=== PATIENT | male | born 1965 | race Caucasian/White ===

== ENCOUNTER 2019-08-20 10:01 | Emergency (ER) | payer MEDICARE, MEDICAID, SELFPAY ==
[2019-08-20 10:18] VITALS: BP 109/79; PULSE 111; RESP 20; TEMP 36.6; BMI 21.7
--- NOTE | 2019-08-20 10:35 | W.ED.ABDPA2 ---
HPI - Abdominal Pain General: Chief Complaint: Abdominal Pain Stated Complaint: Fluid, fall Time Seen by Provider: 08/20/19 10:35 Source: patient Limitations: no limitations History of Present Illness: HPI narrative: here stating I am full of fluid ; reports chronic liver cirrhosis from previous etoh use and hep B; reports last paracentesis 2 wks ago at GI lab; follows up with Dr. Mullins; also complains of bilateral hip pain; states he fell about 4-5 days ago after tripping and has had pain since Location: Diffuse Exacerbating factors: nothing Relieving factors: other (paracentesis ) Associated Symptoms: Denies chills, diarrhea, dysuria, fever(s), nausea and vomiting Review of Systems Const: Denies: fever, chills or body aches Card: Denies: chest pain, palpitations or irregular heart rhythm Resp: Denies: shortness of breath or productive cough GI: Reports: abdominal pain; Denies: nausea, vomiting or diarrhea : Denies: difficulty urinating, painful urination or urinary frequency Musc: Reports: joint pain (bilateral hips); Denies: neck pain or back pain Skin/Breast: Denies: rash Neuro: Denies: headache, numbness in extremities, weakness in extremities, changes in sensation, lack of coordination, frequent falls or slurred speech PFSH ED PFSH: Statuses (acute, chronic, etc) shown below reflect problem list status as previously entered and may not be historically accurate Social History Smoking and tobacco status: current every day smoker Physical Exam Const: COMMON NORMALS: no apparent distress, oriented x3, no limitations and alert GENERAL APPEARANCE: cooperative ORIENTATION/CONSCIOUSNESS: Yes oriented to person, Yes oriented to place and Yes oriented to time Chest: COMMONS NORMALS: inspection of chest normal Resp: COMMON NORMALS: normal respiratory effort and clear to auscultation bilaterally AUSCULTATION: clear to auscultation bilaterally Cardio: COMMON NORMALS: regular rate and regular rhythm RATE: regular rate RHYTHM: regular rhythm GI: INSPECTION: Yes abdominal distension, Yes caput medusae present, Yes fluid wave present and Yes other (umbilical hernia) PALPATION: Yes other (distention ) PERCUSSION: fluid wave Neuro: COMMON NORMALS: oriented x3 SENSORIUM/ORIENTATION: Yes alert, Yes oriented to person, Yes oriented to place and Yes oriented to time Skin: COMMON NORMALS: no rashes or lesions noted GENERAL SKIN EXAM: no rashes or lesions noted Course ED course: Patient: Negrito Nair RMR#: [id number] : 1965Acct:[id number] Age/Sex: 54 / MADM Date: 08/20/19 Loc: ER Attending Dr: Ordering Physician: Annika Mae Date of Service: 08/20/19 Procedure(s): XR hip BI 3-4V wo/w pel [id number] Accession Number(s): [id number] Report Number: [id number] WS: [id number] Bilateral hips, 2 views each, 08/20/2019 Clinical Data: fall; pain Comparison: None. Findings: Right hip: No fractures or dislocations are seen. The joint space is normal. The soft tissues are unremarkable. The pubic symphysis and adjacent visualized right pelvis are unremarkable. Left hip: No fractures or dislocations are seen. The joint space is normal. The soft tissues are unremarkable. The pubic symphysis and adjacent left pelvis are normal. XR/XR hip BI 3-4V wo/w pel [id number] Impression: Negative bilateral hips. Dictated By:Bhavya Nash MD Signed By:Bhavya Nash MDSigned Date/Time:08/20/19 1329 DD/ 132[address] [place] [address] Ultrasound Report Signed Patient: Negrito Nair RMR#: [id number] : 1965Acct:[id number] Age/Sex: 54 / MADM Date: 08/20/19 Loc: ER Attending Dr: Ordering Physician: Annika Mae Date of Service: 08/20/19 Procedure(s): US paracentesis abd w [id number] Accession Number(s): [id number] Report Number: [id number] WS: [id number] ULTRASOUND-GUIDED PARACENTESIS CLINICAL INFORMATION: ascities COMPARISON: None. Procedure Informed consent: The risks, benefits, and alternatives of the procedure were discussed with the patient. Verbal and written consent was obtained. Timeout: A timeout was performed to confirm the correct patient, procedure, and site. Preparation: A suitable skin site was identified. The patient was prepped and draped in usual sterile fashion. Lidocaine 1% was used for local anesthesia. Catheter: 4 Yoruba One-step Yueh catheter. Side: Right Lower quadrant. Fluid Volume: 5000 ml Color: Yellow DISPOSITION: Discarded safely. Complications: None. Patient disposition: No immediate combinations. Patient tolerated the procedure well. US/US paracentesis abd w [id number] IMPRESSION: Uncomplicated ultrasound-guided paracentesis. Removal of 5000 cc yellow fluid Dictated By:Contreras Rodriguez MD Signed By:Contreras Rodriguez MDSigned Date/Time:08/20/191432 DD/ 143 Vital Signs: Vital signs: Vital Signs Temperature 97.9 F 08/20/19 10:18 Pulse Rate 123 H 08/20/19 15:00 Respiratory Rate 20 H 08/20/19 10:18 Blood Pressure 116/86 08/20/19 15:00 Pulse Oximetry 99 08/20/19 15:00 MDM - Abdominal Pain MDM Narrative: Medical decision making narrative: pt given therapeutic paracentesis while in ER; 5L fluid drained; on patient's lab he was noted to have a sodium of 118, potassium of 2.9, and acute kidney injury; when it was recommended patient stay in the hospital he refuses and adamantly wants to go home; risks of a sodium that low including were discussed and patient still would like to go home; discussed with Dr. Fernandes and we will give patient a dose of potassium and magnesium prior to him signing AMA; he states he has a follow-up with Dr. Patricio next week; Dr. Fernandes agreed we did not need to do peritoneal fluid analysis on today's visit Medical Records: Attestation: I reviewed the patient's medical records. Lab Data: Attestation: I reviewed the patient's lab results. Labs: Lab Results 08/20/19 08/20/19 08/20/19 Range/Units 12:44 12:44 12:44 WBC 10.8 H (4.0-10.0) 10^3/ uL RBC 4.32 (4.1-5.3) 10^6/u L Hgb 11.4 L (11.7-16.6) g/dL Hct 33.9 L (42.0-52.0) % MCV 78.5 L (80-94) fL MCH 26.4 L (28.0-34.0) pg MCHC 33.6 (30.0-36.0) g/dL RDW 16.8 H (12.1-15.1) % Plt Count 188 (130-400) 10^3/c mm MPV 9.5 (7.4-10.4) fL Neut % (Auto) 86.5 % Lymph % (Auto) 3.9 % [place] % (Auto) 9.0 % Eos % (Auto) 0.1 % Baso % (Auto) 0.0 % Neut # (Auto) 9.4 H (1.8-7.7) 10^3/u L Lymph # (Auto) 0.4 L (0.8-4.8) 10^3/u L [place] # (Auto) 1.0 H (0.2-0.9) 10^3/u L Eos # (Auto) 0.0 (0.0-0.8) 10^3/u L Baso # (Auto) 0.0 (0.0-0.1) 10^3/u L Nucleated RBC % (a uto) 0 % Nucleated RBCs # 0.0 /100WBC PT 15.80 H (10.5-13.3) SECO NDS INR 1.22 H (0.8-1.2) APTT 34.8 (23.9-36.7) SECO NDS Sodium 118 L* (136-145) mmol/L Potassium 2.9 L (3.5-5.1) mmol/L Chloride 82 L (98-107) mmol/L Carbon Dioxide 23 (22-29) mmol/L Anion Gap 15.9 (5-19) BUN 28 H (6-20) mg/dL Creatinine 1.3 H (0.7-1.2) mg/dL GFR Calculation 57.7 L (90-130) mL/min Glucose 93 (74-109) mg/dL Lactate (0.5-2.2) mmol/L Calcium 9.3 (8.6-10.0) mg/Dl Total Bilirubin 1.4 H (0.15-1.2) mg/dL AST 36 (0-40) U/L ALT 21 (0-41) U/L Alkaline Phosphata se 179 H (40-130) IU/L Ammonia (16-60) umol/L NT-Pro-B Natriuret Pep (0-125) pg/mL Total Protein 6.2 L (6.6-8.7) g/dL Albumin 3.3 L (3.5-5.2) g/dL Globulin 2.9 (1.3-4.6) g/dL Lipase 29 (13-60) U/L 08/20/19 08/20/19 08/20/19 Range/Units 12:44 12:44 12:44 WBC (4.0-10.0) 10^3/ uL RBC (4.1-5.3) 10^6/u L Hgb (11.7-16.6) g/dL Hct (42.0-52.0) % MCV (80-94) fL MCH (28.0-34.0) pg MCHC (30.0-36.0) g/dL RDW (12.1-15.1) % Plt Count (130-400) 10^3/c mm MPV (7.4-10.4) fL Neut % (Auto) % Lymph % (Auto) % [place] % (Auto) % Eos % (Auto) % Baso % (Auto) % Neut # (Auto) (1.8-7.7) 10^3/u L Lymph # (Auto) (0.8-4.8) 10^3/u L [place] # (Auto) (0.2-0.9) 10^3/u L Eos # (Auto) (0.0-0.8) 10^3/u L Baso # (Auto) (0.0-0.1) 10^3/u L Nucleated RBC % (a uto) % Nucleated RBCs # /100WBC PT (10.5-13.3) SECO NDS INR (0.8-1.2) APTT (23.9-36.7) SECO NDS Sodium (136-145) mmol/L Potassium (3.5-5.1) mmol/L Chloride (98-107) mmol/L Carbon Dioxide (22-29) mmol/L Anion Gap (5-19) BUN (6-20) mg/dL Creatinine (0.7-1.2) mg/dL GFR Calculation (90-130) mL/min Glucose (74-109) mg/dL Lactate 1.7 (0.5-2.2) mmol/L Calcium (8.6-10.0) mg/Dl Total Bilirubin (0.15-1.2) mg/dL AST (0-40) U/L ALT (0-41) U/L Alkaline Phosphata se (40-130) IU/L Ammonia 31 (16-60) umol/L NT-Pro-B Natriuret Pep 200 H (0-125) pg/mL Total Protein (6.6-8.7) g/dL Albumin (3.5-5.2) g/dL Globulin (1.3-4.6) g/dL Lipase (13-60) U/L Discharge Plan Discharge Patient Disposition: Left Against Medical Advice Clinical Impression: Cirrhosis of liver, Ascites, Acute hyponatremia, Acute hypokalemia, Acute kidney injury Prescriptions: No Action betamethasone valerate 0.1 % Ointment 1 applic TOPICAL BID PRN (Reason: Rash) RF: 0 tizanidine 4 mg Tablet 4 mg PO Q6H PRN (Reason: Spasms) RF: 0 Zofran 4 mg Tablet 4 mg PO Q8H PRN (Reason: Nausea) RF: 0 spironolactone 100 mg Tablet See Rx Instructions .ROUTE .COMPLEX RF: 0 sumatriptan succinate 50 mg Tablet 50 mg PO PRN MDD 100 MG RF: 0 mirtazapine 30 mg Tablet 15 - 30 mg PO BEDTIME RF: 0 omeprazole 20 mg Capsule,Delayed Release(Dr/Ec) 20 mg PO DAILY PRN (Reason: Acid Reflux) RF: 0 hydrochlorothiazide 25 mg Tablet 25 mg PO DAILY RF: 0 Ventolin HFA 90 mcg/actuation Hfa Aerosol Inhaler 2 puff INHALATION Q6H PRN (Reason: Shortness Of Breath) RF: 0 propranolol 20 mg Tablet 20 mg PO BID RF: 0 morphine 15 mg Tablet 15 mg PO QID PRN (Reason: Breakthrough Pain) RF: 0 glipizide 5 mg Tablet 5 mg PO DAILY RF: 0 morphine 30 mg Capsule,Extend.Release Pellets 30 mg PO Q12H MDD 60 MG RF: 0 Xifaxan 550 mg Tablet 550 mg PO DAILY RF: 0 Interventions: ED Discharge Assessment Last Done: 08/20/19 15:24 Discharge Date/Time: 08/20/19 15:24 Coding Level of Care Code ED First Line Production Supervisor for Esdras Paz Exam Problem Focused
--- NOTE | 2019-08-20 11:21 | US_ITS ---
WS: [id number] ULTRASOUND-GUIDED PARACENTESIS CLINICAL INFORMATION: ascities COMPARISON: None. Procedure Informed consent: The risks, benefits, and alternatives of the procedure were discussed with the vijaya ent. Verbal and written consent was obtained. Timeout: A timeout was performed to confirm the correct patient, procedure, and site. Preparation: A suitable skin site was identified. The patient was prepped and draped in usual sterile fashion. Lidocaine 1% was used for local anesthesia. Catheter: 4 Lao One-step Yueh catheter. Side: Right Lower quadrant. Fluid Volume: 5000 ml Color: Yellow DISPOSITION: Discarded safely. Complications: None. Patient disposition: No immediate combinations. Patient tolerated the procedure well. US/US paracentesis abd w [id number] IMPRESSION: Uncomplicated ultrasound-guided paracentesis. Removal of 5000 cc yellow fluid
--- NOTE | 2019-08-20 11:35 | PC.NURSE ---
portable ultrasound at bedside
--- NOTE | 2019-08-20 12:01 | XR_ITS ---
WS: [id number] Bilateral hips, 2 views each, 08/20/2019 Clinical Data: fall; pain Comparison: None. Findings: Right hip: No fractures or dislocations are seen. The joint space is normal. The soft tissues are unremarkable. The pubic symphysis and adjacent visualized right pelvis are unremarkable. Left hip: No fractures or dislocations are seen. The joint space is normal. The soft tissues are unremarkable. The pubic symphysis and adjacent left pelvis are normal. XR/XR hip BI 3-4V wo/w pel [id number] Impression: Negative bilateral hips.
--- NOTE | 2019-08-20 12:29 | PC.NURSE ---
ultrasound guided paracentesis performed at bedside
[2019-08-20 12:30] VITALS: BP 110/81
[2019-08-20 12:46] VITALS: BP 114/84; PULSE 118; O2SAT 100
[2019-08-20 13:17] LABS: Eosinophils % 0.1 %; Hematocrit 33.9 % (42.0-52.0); Hemoglobin 11.4 g/dL (11.7-16.6); Lymphocytes # 0.4 10^3/uL (0.8-4.8); Lymphocytes % 3.9 %; Mean Corpuscular HGB Conc 33.6 g/dL (30.0-36.0); Mean Corpuscular Hemoglobin 26.4 pg (28.0-34.0); Mean Corpuscular Volume 78.5 fL (80-94); Mean Platelet Volume 9.5 fL (7.4-10.4); Neutrophils # 9.4 10^3/uL (1.8-7.7); Neutrophils % 86.5 %; Nucleated Red Blood Cells % 0 %; Platelet Count 188 10^3/cmm (130-400); Red Blood Count 4.32 10^6/uL (4.1-5.3); Red Cell Distribution Width 16.8 % (12.1-15.1); White Blood Count 10.8 10^3/uL (4.0-10.0)
[2019-08-20 13:26] LABS: INR 1.22 (0.8-1.2)
[2019-08-20 13:27] LABS: Partial Thromboplastin Time 34.8 SECONDS (23.9-36.7)
[2019-08-20 13:37] LABS: Ammonia 31 umol/L (16-60); Lactate (Lactic Acid level) 1.7 mmol/L (0.5-2.2)
[2019-08-20 13:38] LABS: Alanine Aminotransferase 21 U/L (0-41); Albumin Level 3.3 g/dL (3.5-5.2); Alkaline Phosphatase 179 IU/L (40-130); Anion Gap 15.9 (5-19); Aspartate Amino Transferase 36 U/L (0-40); Blood Urea Nitrogen 28 mg/dL (6-20); Calcium 9.3 mg/Dl (8.6-10.0); Carbon Dioxide 23 mmol/L (22-29); Chloride 82 mmol/L (98-107); Globulin 2.9 g/dL (1.3-4.6); Glomerular Filtration Rate 57.7 mL/min (90-130); Glucose 93 mg/dL (74-109); Lipase 29 U/L (13-60); Total Bilirubin 1.4 mg/dL (0.15-1.2); Total Protein 6.2 g/dL (6.6-8.7)
[2019-08-20 13:42] LABS: NT Pro B Type Natriuretic Pept 200 pg/mL (0-125)
[2019-08-20 13:43] VITALS: BP 122/89; PULSE 110; O2SAT 100
--- NOTE | 2019-08-20 13:45 | PC.NURSE ---
pt reports his abdominal pain is resolved now
[2019-08-20 14:42] VITALS: BP 115/81; PULSE 112; O2SAT 99
[2019-08-20 14:46] LABS: Potassium 2.9 mmol/L (3.5-5.1); Sodium 118 mmol/L (136-145)
[2019-08-20 15:00] VITALS: BP 116/86; PULSE 123; O2SAT 99
[2019-08-20] MEDS: magnesium oxide 400 mg tablet 800 MG PO (15:19)
[2019-08-20] MEDS: potassium chloride oral liq 20 mEq/15 mL UDC 60 MEQ PO (15:19)
--- NOTE | 2019-08-20 15:22 | PC.NURSE ---
pt left AMA. Pt states he is more comfortable at home and not interested in any more iv's. pt states he will follow up with his physician. pt left via wheelchair
== END 2019-08-20 15:24 | disposition left against medical advice (07) ==
PROVIDERS: Emergency Provider Physician Assistant
DX: K74.60 Unspecified cirrhosis of liver (principal); R18.8 Other ascites; E87.1 Hypo-osmolality and hyponatremia; E87.6 Hypokalemia; N17.9 Acute kidney failure, unspecified; Z53.21 Procedure and treatment not carried out due to patient leaving prior to being seen by health care provider; F17.210 Nicotine dependence, cigarettes, uncomplicated
CPT/HCPCS: 36415; 49083; 73522; 80053; 82140; 83605; 83690; 83880; 85025; 85610; 85730; 87040; 99281

== ENCOUNTER 2019-08-31 10:41 | Inpatient (IN) | payer MEDICARE, MEDICAID, SELFPAY ==
[2019-08-31] VITALS (23 sets, daily range): BP systolic 102–145; BP diastolic 58–102; PULSE 105–129; RESP 7–20; TEMP 36.4; O2SAT 90–99; BMI 21.7
--- NOTE | 2019-08-31 11:07 | W.ED.GENADLT ---
HPI - General Adult General: Chief complaint: General Medical Stated complaint: Sore throat Time Seen by Provider: 08/31/19 10:47 Source: patient Mode of arrival: ambulatory Limitations: no limitations History of Present Illness: HPI narrative: Patient comes in today for complaints of sore throat and decreased oral intake. Patient has a history of end-stage cirrhosis of the liver. Patient also uses routine inhalers. Patient appears chronically ill. Patient appears and mild pain. Review of Systems General: Reports: 10 or more systems reviewed and unremarkable except in HPI and below ENMT: Reports: throat pain and painful swallowing PFSH ED PFSH: Statuses (acute, chronic, etc) shown below reflect problem list status as previously entered and may not be historically accurate Medical History (Updated 08/31/19 @ 17:30 by EMANUEL Pulliam) Chronic low back pain (Acute) Current smoker (Acute) DM type 2 (diabetes mellitus, type 2) (Acute) Hepatitis B (Acute) Hepatitis C (Acute) History of alcoholism (Acute) History of drug abuse (Acute) Surgical History Hx of cholecystectomy (Acute) Family History Mother Cancer colon Social History Smoking and tobacco status: current every day smoker Alcohol intake: former Substance/Drug Use: former Marital status: Current occupational status: unemployed Physical Exam Const: COMMON NORMALS: no apparent distress and oriented x3 GENERAL APPEARANCE: cooperative HENMT: COMMON NORMALS: normocephalic, external ears normal, EAC's normal, TM's normal bilaterally and external nose normal HEAD & SCALP: normal to inspection and normocephalic FACE & SINUS: normal facial exam NOSE: external nose normal GENERAL EAR: hearing not grossly impaired EXTERNAL EAR: Yes external ears normal EXTERNAL AUDITORY CANAL: EAC's normal TYMPANIC MEMBRANE: TM's normal bilaterally THROAT: posterior oropharynx abnormal edema and exudates (upper palate, posterior pharynx) Eye: COMMON NORMALS: PERRL and EOMs intact bilaterally PUPIL: Yes PERRL Neck/C-Spine: COMMON NORMALS: full ROM and no lymphadenopathy Lymph: LYMPHATIC: no lymphedema noted Chest: COMMONS NORMALS: inspection of chest normal and palpation of chest normal Resp: COMMON NORMALS: normal respiratory effort and clear to auscultation bilaterally AUSCULTATION: clear to auscultation bilaterally Cardio: COMMON NORMALS: regular rate and regular rhythm RATE: regular rate RHYTHM: regular rhythm GI: COMMON NORMALS: normal to inspection, nondistended, normoactive bowel sounds and non-tender : COMMON NORMALS: Yes no CVA tenderness BLADDER/KIDNEY EXAM: Yes no CVA tenderness Back/Pelvis: COMMON NORMALS: no CVA tenderness and thoracic and lumbar spine normal to inspection Extremity: COMMON NORMALS: normal to inspection GENERAL: No edema Neuro: COMMON NORMALS: oriented x3, moves all extremities and no focal motor deficits Psych: COMMON NORMALS: mental status grossly normal and cooperative Skin: COMMON NORMALS: no rashes or lesions noted GENERAL SKIN EXAM: no rashes or lesions noted Course ED course: 1255, reviewed case with Dr. Riggins, agreed for concern of Dehydration and hyponatremia and patient need for admission. wjw 1430, discussed with Dr. Cardenas, he agreed to admission, he requested Zosyn started and order for US of abd for ascites. orders placed. wjw 1500, Dr. Riggins had spoken with Dr. Rodrigues whom has agreed to admission of patient to ICU Vital Signs: Vital signs: Vital Signs Temperature 97.6 F 08/31/19 10:41 Pulse Rate 114 H 08/31/19 16:31 Respiratory Rate 18 08/31/19 16:31 Blood Pressure 120/102 08/31/19 16:31 Pulse Oximetry 95 08/31/19 16:31 MDM - General Adult MDM Narrative: Medical decision making narrative: Patient comes in today with complaints of sore throat and declining condition. Patient has a history of cirrhosis of the liver. On exam patient's abdomen is nontender to palpation and soft. Respirations are even lungs are clear to auscultation. Posterior pharynx is red with exudate throughout oromucosa. Skin turgor is poor with tenting. Differential diagnosis includes dehydration, sepsis, oral stomatitis, infection in the peritoneal bowel. Reviewed exam with Dr. Riggins who recommended treatment for hyponatremia and dehydration. After discussion with hospitalist it was recommended for further evaluation with ultrasound and paracentesis for further evaluation of fluid to rule out infection in the peritoneum. Patient was ordered blood cultures and given 1 dose of Zosyn. Patient needs admission for further treatment of dehydration and hyponatremia along with further evaluation and care for possible sepsis and infection of the peritoneum. Lab Data: Labs: Lab Results 08/31/19 08/31/19 08/31/19 Range/Units 11:18 11:45 11:45 WBC 20.7 H (4.0-10.0) 10^3/ uL RBC 6.05 H (4.1-5.3) 10^6/u L Hgb 15.4 (11.7-16.6) g/dL Hct 45.3 (42.0-52.0) % MCV 74.9 L (80-94) fL MCH 25.5 L (28.0-34.0) pg MCHC 34.0 (30.0-36.0) g/dL RDW 17.1 H (12.1-15.1) % Plt Count 317 (130-400) 10^3/c mm MPV 8.6 (7.4-10.4) fL Neut % (Auto) 94.7 % Lymph % (Auto) 1.6 % [place] % (Auto) 3.1 % Eos % (Auto) 0.0 % Baso % (Auto) 0.1 % Neut # (Auto) 19.5 H (1.8-7.7) 10^3/u L Lymph # (Auto) 0.3 L (0.8-4.8) 10^3/u L [place] # (Auto) 0.7 (0.2-0.9) 10^3/u L Eos # (Auto) 0.0 (0.0-0.8) 10^3/u L Baso # (Auto) 0.0 (0.0-0.1) 10^3/u L Nucleated RBC % (a uto) 0 % Nucleated RBCs # 0.0 /100WBC Differential Comme nt Sodium 113 L* (136-145) mmol/L Potassium 5.4 H (3.5-5.1) mmol/L Chloride 74 L (98-107) mmol/L Carbon Dioxide 22 (22-29) mmol/L Anion Gap 22.4 H (5-19) BUN 81 H D (6-20) mg/dL Creatinine 2.4 H (0.7-1.2) mg/dL GFR Calculation 28.5 L (90-130) mL/min Glucose 133 H (74-109) mg/dL Lactic Acid (0.5-2.2) mmol/L Calcium 11.0 H (8.6-10.0) mg/Dl Ammonia (16-60) umol/L Fluid Color (PALE YELLOW) Fluid Appearance (CLEAR) Fluid Specific Gra v Fluid pH Fluid WBC u/L Fluid RBC (0-0) 10^3/uL Fluid Tot Cell Cou nt Fld Polynuclear WB Cs # 10^3/uL Fld Polynuclear WB Cs % % Fl Mononucl WBCs # (Auto) 10^3/uL Fl Mononuclear % A uto % Fluid Glucose mg/dL Fluid Total Protei n g/dL Fluid Albumin g/dL Fluid LDH U/L Fluid Amylase U/L Fluid Alk Phosphat ase IU/L Fluid Cholesterol (0-200) mg/dL Fluid Triglyceride s (0-150) mg/dL Fluid Uric Acid mg/dL Group A Strep Rapi d Negative (Negative) 08/31/19 08/31/19 08/31/19 Range/Units 15:09 16:00 16:36 WBC (4.0-10.0) 10^3/ uL RBC (4.1-5.3) 10^6/u L Hgb (11.7-16.6) g/dL Hct (42.0-52.0) % MCV (80-94) fL MCH (28.0-34.0) pg MCHC (30.0-36.0) g/dL RDW (12.1-15.1) % Plt Count (130-400) 10^3/c mm MPV (7.4-10.4) fL Neut % (Auto) % Lymph % (Auto) % [place] % (Auto) % Eos % (Auto) % Baso % (Auto) % Neut # (Auto) (1.8-7.7) 10^3/u L Lymph # (Auto) (0.8-4.8) 10^3/u L [place] # (Auto) (0.2-0.9) 10^3/u L Eos # (Auto) (0.0-0.8) 10^3/u L Baso # (Auto) (0.0-0.1) 10^3/u L Nucleated RBC % (a uto) % Nucleated RBCs # /100WBC Differential Comme nt Yes Sodium (136-145) mmol/L Potassium (3.5-5.1) mmol/L Chloride (98-107) mmol/L Carbon Dioxide (22-29) mmol/L Anion Gap (5-19) BUN (6-20) mg/dL Creatinine (0.7-1.2) mg/dL GFR Calculation (90-130) mL/min Glucose (74-109) mg/dL Lactic Acid 2.2 (0.5-2.2) mmol/L Calcium (8.6-10.0) mg/Dl Ammonia 27 (16-60) umol/L Fluid Color Pale yellow (PALE YELLOW) Fluid Appearance Clear (CLEAR) Fluid Specific Gra v 1.005 Fluid pH 8.0 Fluid WBC 990 u/L Fluid RBC 1 H (0-0) 10^3/uL Fluid Tot Cell Cou nt Not Reportable Fld Polynuclear WB Cs # 0.705 10^3/uL Fld Polynuclear WB Cs % 71.200 % Fl Mononucl WBCs # (Auto) 0.285 10^3/uL Fl Mononuclear % A uto 28.800 % Fluid Glucose 114.0 mg/dL Fluid Total Protei n 1 g/dL Fluid Albumin 0.4 g/dL Fluid LDH 65 U/L Fluid Amylase 4 U/L Fluid Alk Phosphat ase 35 IU/L Fluid Cholesterol 10 (0-200) mg/dL Fluid Triglyceride s 16 (0-150) mg/dL Fluid Uric Acid 10 mg/dL Group A Strep Rapi d (Negative) Discharge Plan Discharge Patient Disposition: Admitted As Inpatient Clinical Impression: Hyponatremia, Acute dehydration, Bonnie infection, oral, Cirrhosis of liver, Peritonitis and retroperitoneal infections Condition: Stable Additional Instructions: Drink plenty of fluids, within any fluid restrictions Make sure to coat you mouth well with Nystatin for eradication of yeast Rinse mouth well after use of inhalers and spit out follow-up with primary care in one week Return to ER for high fever or new concerns Coding Level of Care Code ED Consulting Practice Manager for Esdras Fwd Exam Problem Focused
[2019-08-31] MEDS: nystatin 100,000 unit/mL UDC 5 mL 500000 UNIT PO (11:35)
[2019-08-31] MEDS: lidocaine 2% viscous 15 mL UDC MUCOUS MEM (11:51)
[2019-08-31 11:52] LABS: Basophils % 0.1 %; Hematocrit 45.3 % (42.0-52.0); Hemoglobin 15.4 g/dL (11.7-16.6); Lymphocytes # 0.3 10^3/uL (0.8-4.8); Lymphocytes % 1.6 %; Mean Corpuscular Hemoglobin 25.5 pg (28.0-34.0); Mean Corpuscular Volume 74.9 fL (80-94); Mean Platelet Volume 8.6 fL (7.4-10.4); Monocytes # 0.7 10^3/uL (0.2-0.9); Monocytes % 3.1 %; Neutrophils # 19.5 10^3/uL (1.8-7.7); Neutrophils % 94.7 %; Nucleated Red Blood Cells % 0 %; Platelet Count 317 10^3/cmm (130-400); Red Blood Count 6.05 10^6/uL (4.1-5.3); Red Cell Distribution Width 17.1 % (12.1-15.1); White Blood Count 20.7 10^3/uL (4.0-10.0)
[2019-08-31] MEDS: sodium chloride 0.9% 500 ML IV (11:55)
[2019-08-31 12:01] LABS: Rapid Strep A Test Negative (Negative)
[2019-08-31 12:07] LABS: Anion Gap 22.4 (5-19); Carbon Dioxide 22 mmol/L (22-29); Chloride 74 mmol/L (98-107); Glomerular Filtration Rate 28.5 mL/min (90-130); Glucose 133 mg/dL (74-109); Potassium 5.4 mmol/L (3.5-5.1)
[2019-08-31 12:11] LABS: Blood Urea Nitrogen 81 mg/dL (6-20); Sodium 113 mmol/L (136-145)
--- NOTE | 2019-08-31 13:07 | XR_ITS ---
WS: [id number] Portable AP upright chest, 08/31/2019 Clinical Data: weakness Comparison: Portable chest, 06/02/2019. Findings: No nodules, masses or effusions are seen. The heart is normal. The pulmonary vascularity is not increased. No pneumonia or pneumothorax is seen. There are clips in the right upper quadrant fro m a cholecystectomy. XR/XR chest 1V portable [id number] Impression: Negative chest.
--- NOTE | 2019-08-31 13:53 | US_ITS ---
WS: [id number] Abdominal ultrasound, limited. History: Evaluate for ascites. Comparison: None. All 4 quadrants are imaged by ultrasound to evaluate for ascites. Moderate to large amount of ascites noted throughout all 4 quadrants of the abdomen. US/US abdomen limited [id number] IMPRESSION: Moderate to large amount of peritoneal ascites.
[2019-08-31] MEDS: fentaNYL 50 mcg/mL INJ 2mL 25 MCG IVP (14:07)
[2019-08-31] MEDS: piperacillin-tazobactam 3.375 GM in sodium chloride 0.9% (plus) 50 ML IV (14:11)
--- NOTE | 2019-08-31 15:05 | US_ITS ---
WS: [id number] ULTRASOUND-GUIDED PARACENTESIS CLINICAL INFORMATION: ascites COMPARISON: None. Procedure Informed consent: The risks, benefits, and alternatives of the procedure were discussed with the vijaya ent. Verbal and written consent was obtained. Timeout: A timeout was performed to confirm the correct patient, procedure, and site. Preparation: A suitable skin site was identified. The patient was prepped and draped in usual sterile fashion. Lidocaine 1% was used for local anesthesia. Catheter: 4 Nigerian One-step Yueh catheter. Side: Right Lower quadrant. Fluid Volume: 1300 ml Color: Clear yellow 50 cc Fluid was sent for requested diagnostic tests. Complications: None. Patient disposition: Resting comfortably in the ER. US/US paracentesis abd w [id number] IMPRESSION: Uncomplicated ultrasound-guided paracentesis. Removal of 1300 cc clear yellow fluid. Fluid was sent for requested diagnostic tests.
--- NOTE | 2019-08-31 15:05 | ECG_ITS ---
Measurements Intervals [place] Rate: 114 P: 73 AL: 152 QRS: 55 QRSD: 91 T: 73 QT: 300 QTc: 415 SINUS TACHYCARDIA POSSIBLE LEFT ATRIAL ENLARGEMENT [-0.1mV P WAVE IN V1/V2] ABNORMAL RHYTHM ECG Compared to ECG 05/28/2019 13:08:24 No significant changes Electronically Signed On 08-31-2019 19:28:50 [employer]BER TOOL SHARPENER by Cheryl Lacy M.D. [email or web address]
[2019-08-31 15:30] LABS: Ammonia 27 umol/L (16-60)
--- NOTE | 2019-08-31 16:24 | P.HP_ITS ---
Providers/Chief Complaint Primary Care Provider: Dr Mullins Chief Complaint: Sore throat History of Present Illness Negrito Nair is a 54 year old male with history of liver cirrhosis, hepatitis C now reported in remission, hepatitis B, DM 2, past history of alcoholism and drug abuse in remission, chronic lower back pain, reported history of tachycardia, current smoker presents to emergency department complaining of generalized weakness and sore throat. Rapid strep in ER was negative. On assessment with laboratory studies he was found to have severe hyponatremia with sodium of 113, hyperkalemia potassium 5.4, acute kidney injury with creatinine 2.4. With leukocytosis of 20.7. Regular tachycardia of 117. Unremarkable chest x-ray. Abdominal ultrasound with moderate to large ascites. He reports he has not eaten anything in about 4 days. Last time he took any of his medications was Saturday. Reports he is barely been drinking any. Has not had a bowel movement in 2 days. Says usually has 1 every day. Reports last time he urinated was yesterday. Blood culture has been sent. Lactic acid is requested. UA is requested. EKG is requested. In ER he is assessed by interventional radiology with paracentesis of 1300 mL of yellow fluid. Previously with paracentesis as large as 8 L. Volume Kept low due to his profound hyponatremia. Urine sodium, osmolality, creatinine and urea have been requested. He was started on 3% saline in ER. Review of Systems Const: Reports: fatigue; Denies: fever Eyes: Denies: eye redness ENMT: Reports: other (Sore throat) Card: Denies: chest pain or edema Resp: Denies: productive cough or coughing up blood GI: Reports: abdominal pain (Generalized abdominal discomfort), nausea, b loating and other (Abdominal distention) : Denies: flank pain or urinary frequency Musc: Denies: neck pain or joint swelling Skin/Breast: Denies: rash Neuro: Denies: headache or confusion Psych: Denies: paranoia or memory loss Endo: Reports: tired all the time; Denies: excessive urination Gregory/Lymph: Denies: easy bleeding Medications/Allergies Allergies Allergy/AdvReac Type Severity Reaction Status Date / Time naproxen Allergy Mild ADR-Vomitin Verified 08/20/19 10:29 g doxycycline Allergy ADR-Vomitin Verified 08/20/19 10:29 g PFSH Acute PFSH: Statuses (acute, chronic, etc) shown below reflect problem list status as previously entered and may not be historically accurate Medical History (Updated 08/31/19 @ 17:06 by Arsen Knott MD) Chronic low back pain (Acute) Current smoker (Acute) DM type 2 (diabetes mellitus, type 2) (Acute) Hepatitis B (Acute) Hepatitis C (Acute) History of alcoholism (Acute) History of drug abuse (Acute) Surgical History Hx of cholecystectomy (Acute) Family History Mother Cancer colon Social History Smoking and tobacco status: current every day smoker Alcohol intake: former Substance/Drug Use: former Marital status: Current occupational status: unemployed Vitals/I&O/Wt Last Vital Signs Temp 97.6 F 08/31/19 10:41 Pulse 117 H 08/31/19 13:19 Resp 18 08/31/19 14:07 BP 127/89 08/31/19 13:19 Pulse Ox 99 08/31/19 13:19 08/31/19 08/31/19 08/31/19 06:59 14:59 22:59 Intake Total 550 / 550 Balance 550 / 550 Weight last 48 hrs Weight 61.235 kg Physical Exam Const: COMMON NORMALS: no apparent distress and oriented x3 ORIENTATI ON/CONSCIOUSNESS: not confused OTHER: Appears generally weak. HENMT: COMMON NORMALS: oropharynx normal Neck/C-Spine: COMMON NORMALS: no JVD Resp: COMMON NORMALS: normal respiratory effort and clear to auscultation bilaterally AUSCULTATION: clear to auscultation bilaterally Cardio: COMMON NORMALS: no JVD, regular rhythm, S1 normal heart sound, S2 normal heart sound and no murmurs RHYTHM: regular rhythm HEART SOUNDS: S1 normal and S2 normal GI: COMMON NORMALS: soft to palpation and non-tender INSPECTION: Yes a bdominal distension PALPATION: Yes soft Extremity: COMMON NORMALS: no joint enlargement and no pedal edema Neuro: COMMON NORMALS: oriented x3 and moves all extremities Skin: COMMON NORMALS: no rashes or lesions noted GENERAL SKIN EXAM: no rashes or lesions noted Data : 08/31/19 11:45 08/31/19 11:45 Micro: Microbiology 08/31/19 11:45 Blood Culture - Preliminary Blood SPECIMEN COLLECTED A&P Assessment and plan (1) Hyponatremia: Several days ago on visit to ER sodium was 118. Today is 113. Sympt omatic with generalized weakness. Etiology for now is difficult to determine. He was on HCTZ previously at home. Recently with poor oral intake. At the same time large intra-abdominal ascites. Requested urine sodium, osmolality. Check TSH. Hold HCTZ. Limit paracentesis volume. Started on 3%. Recheck sodium frequently. Regular diet. Status: Acute Code(s): E87.1 - Hypo-osmolality and hyponatremia (2) Hyperkalemia: Possibly secondary to spironolactone. Will hold at this time. Also with acute kidney injury. Low potassium diet. Status: Acute Code(s): E87.5 - Hyperkalemia (3) Acute kidney injury: Creatinine up to 2.4 which is higher than his baseline. Reports reduced oral intake in the last several days. Says his last food intake was sometime 4 days ago. Reports he has not been drinking very much. Reports last urine output was last night. Would suspect prerenal acute kidney injury. Cannot rule out hepatorenal syndrome at this time. Requested for urine creatinine, urine urea, urine sodium. Will receive 25 g of 25% albumin after paracentesis. Status: Acute Code(s): N17.9 - Acute kidney failure, unspecified (4) Leukocytosis: 20.7. May be secondary to dehydration, hemoconcentration, stress. Also having a sore throat. Possibly viral pharyngitis. Rapid strep negative. With abdominal pain, distention, ascites. At this time cannot entirely rule out SBP.Cannot rule out possible sepsis with leukocytosis 20.7, tachycardia heart rate 114 regular. Paracentesis is been requested and performed. At this time will give empirically on Rocephin until results are available. Check rapid flu. Status: Acute Code(s): D72.829 - Elevated white blood cell count, unspecified (5) Ascites: Moderate to large ascites. Previously had large volume paracentesis 7-8 L removed. Last paracentesis was on August 20 with reported 5 L drained. For now due to severe hyponatremia 1300 mL removed. Follow sodium. Follow paracentesis studies. For now empirically given Rocephin due to concern for possible SBP. Status: Acute Code(s): R18.8 - Other ascites (6) Cirrhosis of liver: Diagnosed 13 years ago. Reported secondary to alcoholism, IV drug use, hepatitis. Continue follow-up with Dr. Mullins. Continue attempts to quit smoking. Plan for referral for liver transplantation or becomes a candidate. Status: Acute Qualifiers: Ascites presence: with ascites Hepatic cirrhosis type: unspecified hepatic cirrhosis Qualified Code(s): K74.60 - Unspecified cirrhosis of liver; R18.8 - Other ascites Code(s): K74.60 - Unspecified cirrhosis of liver Additional A&P Information Additional A&P Information: Generalized weakness: Suspected secondary to hyponatremia, electrolyte normalities, poor oral intake for several days, with possible occult infection. Will check TSH. Follow paracentesis studies. Check rapid flu. Resume regular, low potassium diet. Attestations Medical Necessity Statement*: Admission of over 2 midnights is going to be needed versus management of severe hypokalemia, electrolyte of normalities, ascites, possible sepsis, generalized weakness. Critical Care Time: Assessment management of severe hyponatremia, hyperkalemia, leukocytosis, tachycardia with possible sepsis, possible SBP. Critical care time: 30 - 74 mins Coding Level of Care Code Acute [facility] Diagnoses Hyponatremia E87.1 Hyperkalemia E87.5 Acute kidney injury N17.9 Leukocytosis D72.829 Ascites R18.8 Cirrhosis of liver K74.60; R18.8 Ascites presence: with ascites Hepatic cirrhosis type: unspecified hepatic cirrhosis
[2019-08-31 16:47] LABS: Body Fluid Polynuclear #Cells 0.705 10^3/uL; Body Fluid WBC 990 u/L; Monocytes # Body Fluid 0.285 10^3/uL; RBC, Body Fluid 1 10^3/uL (0-0)
[2019-08-31 16:50] LABS: Body Fluid Specific Gravity 1.005
[2019-08-31 16:55] LABS: Lactic Sepsis W/Reflex 2.2 mmol/L (0.5-2.2)
[2019-08-31 17:03] LABS: Albumin Body Fluid 0.4 g/dL; Amylase Body Fluid 4 U/L; Cholesterol Body Fluid 10 mg/dL (0-200); Fluid Alkaline Phos. 35 IU/L; LDH Body Fluid 65 U/L; Total Protein Body Fluid 1 g/dL; Triglycerides Body Fluid 16 mg/dL (0-150); Uric Acid Body Fluid 10 mg/dL
[2019-08-31 17:08] LABS: Apprearance, Body Fluid CLEAR (CLEAR); Color, Body Fluid PALE YELLOW (PALE YELLOW)
[2019-08-31 17:09] LABS: PATH Referral YES
--- NOTE | 2019-08-31 17:22 | P.CONIM_ITS ---
Providers/Reason For Consult Consulting Physican/Specialty*: omar liu md telenephrology Reason for Consult*: APRIL, profound hyponatremia, and hyperkalemia Requesting Physcian: DR. Alvarez History of Present Illness History of Present Illness Negrito Nair is a 54 year old male h/o hep b and hep c. dm, cirrhosis. Pt follows w/ GI. he gets routine paracentesis. Pt was last inER on 08/20/19. he had a 5 liter paracentesis. he was noted to have hyponatremia- na 118, hypokalemia, and APRIL. Pt signed out AMA on that day. since then he has weakened, not eating for over 3-4 days. Pt presented w/ edema and weakness today and found w/ na 113, k 5.4, and april. pt had a 1.3 l paracentesis and wbc were 990. Review of Systems Narrative: weak, lethargic, cant eat, sick Const: Reports: body aches, change in appetite, change in weight, fatigue and malaise Card: Reports: pre-syncope Resp: Reports: shortness of breath GI: Reports: abdominal pain, nausea, difficulty swallowing, heartburn/indigestion and bloating : Reports: scrotal swelling and other (dec uop) Neuro: Reports: headache and dizziness Psych: Reports: anxiety Meds/Allergies Home Medications and Allergies Home Medications Medication Instructions Recorded Confirmed Type albuterol sulfate [Ventolin HFA] 2 puff INHALATION Q6H PRN 08/20/19 08/31/19 History betamethasone valerate 1 applic TOPICAL BID PRN 08/20/19 08/31/19 History glipizide 5 mg PO DAILY 08/20/19 08/31/19 History hydrochlorothiazide 25 mg PO DAILY 08/20/19 08/31/19 History mirtazapine 15 - 30 mg PO BEDTIME 08/20/19 08/31/19 History morphine 15 mg PO QID PRN 08/20/19 08/31/19 History morphine 30 mg PO Q12H MDD 60 MG 08/20/19 08/31/19 History omeprazole 20 mg PO DAILY PRN 08/20/19 08/31/19 History ondansetron HCl [Zofran] 4 mg PO Q8H PRN 08/20/19 08/31/19 History rifaximin [Xifaxan] 550 mg PO DAILY 08/20/19 08/31/19 History spironolactone See Rx Instructions .ROUTE .COMPLEX 08/20/19 08/31/19 History sumatriptan succinate 50 mg PO PRN MDD 100 MG 08/20/19 08/31/19 History tizanidine 4 mg PO Q6H PRN 08/20/19 08/31/19 History Allergies Allergy/AdvReac Type Severity Reaction Status Date / Time naproxen Allergy Mild ADR-Vomitin Verified 08/20/19 10:29 g doxycycline Allergy ADR-Vomitin Verified 08/20/19 10:29 g Current Medications Current Medications Generic Name Dose Route Start Last Admin Trade Name Freq PRN Reason Stop Dose Admin Sodium Chloride 250 mls @ 15 mls/hr 08/31/19 15:45 08/31/19 16:33 Sodium Chloride 3% IV 09/01/19 08:24 15 mls/hr .[id number] ONE Administration PFSH Acute PFSH: Statuses (acute, chronic, etc) shown below reflect problem list status as previously entered and may not be historically accurate Medical History (Updated 08/31/19 @ 17:30 by EMANUEL Pulliam) Chronic low back pain (Acute) Current smoker (Acute) DM type 2 (diabetes mellitus, type 2) (Acute) Hepatitis B (Acute) Hepatitis C (Acute) History of alcoholism (Acute) History of drug abuse (Acute) Surgical History Hx of cholecystectomy (Acute) Family History Mother Cancer colon Social History Smoking and tobacco status: current every day smoker Alcohol intake: former Substance/Drug Use: former Marital status: Current occupational status: unemployed Vitals/I&O/Wt Last Vital Signs Temp 97.6 F 08/31/19 10:41 Pulse 114 H 08/31/19 16:31 Resp 18 08/31/19 16:31 BP 120/102 08/31/19 16:31 Pulse Ox 95 08/31/19 16:31 08/31/19 08/31/19 08/31/19 06:59 14:59 22:59 Intake Total 550 / 550 Balance 550 / 550 Weight last 48 hrs Weight 61.235 kg Physical Exam Narrative: EXAM NARRATIVE: weak, swollen, cachectic Const: COMMON NORMALS: oriented x3 GENERAL APPEARANCE: cooperative, in distress, anxious and ill appearing; not comfortable NUTRITIONAL APPEARANCE: cachectic HENMT: COMMON NORMALS: normocephalic HEAD & SCALP: normocephalic Neck/C-Spine: COMMON NORMALS: no JVD Chest: COMMONS NORMALS: inspection of chest normal Resp: COMMON NORMALS: normal respiratory effort, no retractions and clear to auscultation bilaterally EFFORT & INSPECTION: Yes able to speak in complete sentences AUSCULTATION: clear to auscultation bilaterally Cardio: COMMON NORMALS: no JVD, regular rate, S1 normal heart sound and S2 normal heart sound RATE: regular rate and tachycardic HEART SOUNDS: S1 normal and S2 normal Extremity: GENERAL: Yes edema Neuro: COMMON NORMALS: oriented x3 Psych: ATTITUDE: Yes calm Data Micro: Micro: Microbiology 08/31/19 11:45 Blood Culture - Pr eliminary Blood SPECIMEN COLLE KIKO A&P Assessment and plan (1) Acute kidney injury: 1. APRIL- likely HRS vs atn vs prerenal azotemia- please check ua, ur na, ur osm, and ur cr. -please check a renal us -please stop aldactone and hctz -please start albumin, octreotide, midodrine. if bp drops, then norepinephrine -monitor uop and chemistries closely 2. hyperkalemia- from APRIL and aldactone -low k diet. hold aldactone 3. hyponatremia- na was 118 on 08/20/19- slowly correct. d/c 3% saline -use albumin and octreotide -fluid restrict -check chem 7 every 4 hrs 4. hypercalcemia- likely dry- monitor and check pth 5. leukocytosis- presumed SBP- wbc of 990 boted- abx as per Dr. Alvarez -if pt does not improve soon, consider [facility] discussed w/ DR. 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
[2019-08-31 18:25] LABS: Reflex Lactate Order Y
[2019-08-31 18:36] LABS: Blood Urea Nitrogen 81 mg/dL (6-20); Calcium 9.4 mg/Dl (8.6-10.0); Carbon Dioxide 17 mmol/L (22-29); Chloride 79 mmol/L (98-107); Glomerular Filtration Rate 33.2 mL/min (90-130); Glucose 133 mg/dL (74-109)
[2019-08-31 18:40] LABS: Urine Creatinine 117 mg/dL (39-259)
[2019-08-31 18:47] LABS: Sodium 111 mmol/L (136-145)
[2019-08-31] MEDS: cefTRIAXone 2,000 MG in sodium chloride 0.9% (plus) 50 ML 100 MG IV (19:16)
[2019-08-31 21:54] LABS: INR 1.42 (0.8-1.2)
[2019-08-31] MEDS: heparin 5,000 unit/mL INJ 1 mL 5000 UNIT SUBCUT (22:21)
[2019-08-31] MEDS: nystatin 100,000 unit/mL UDC 5 mL 400000 UNIT PO (22:22)
[2019-08-31] MEDS: morphine ER (12 HR) 30 mg tablet PO (22:23)
[2019-08-31] MEDS: nicotine 21 mg Patch 1 PATCH TRANSDERMA (22:26)
[2019-08-31 22:39] LABS: Sodium 115 mmol/L (136-145)
[2019-08-31] MEDS: mirtazapine 30 mg Tablet 15 MG PO (22:59)
[2019-08-31] MEDS: midodrine 5 mg TABLET PO (23:00)
[2019-08-31 23:30] LABS: Add Urine Microscopic? NO
--- NOTE | 2019-08-31 23:55 | PC.NURSE ---
DR KENDRA SANTIAGO WAS CALLED, GAVE CLARIFICATION ON MED ORDERS, DR ALSO ORDERED 1 GM OF CALCIUM GLUCANATE AND FOR 3% TO RUN AT 40 ML/HR.
[2019-08-31 23:59] LABS: Anion Gap 21.7 (5-19); Calcium 10.2 mg/Dl (8.6-10.0); Carbon Dioxide 21 mmol/L (22-29); Chloride 80 mmol/L (98-107); Glomerular Filtration Rate 29.9 mL/min (90-130); Glucose 115 mg/dL (74-109); Potassium 5.7 mmol/L (3.5-5.1)
[2019-09-01] VITALS (17 sets, daily range): BP systolic 116–148; BP diastolic 79–98; PULSE 116–127; RESP 10–21; TEMP 36.6–36.9; O2SAT 92–99
[2019-09-01 00:21] LABS: Blood Urea Nitrogen 82 mg/dL (6-20); Sodium 117 mmol/L (136-145)
[2019-09-01] MEDS: dextrose 50% syringe 50 mL IVP (01:12)
[2019-09-01] MEDS: insulin regular-human 10 UNIT in SYRINGE 1 EACH 100 UNIT IVP (01:17)
[2019-09-01 01:29] LABS: Bilirubin Urine Neg (NEGATIVE); Blood Urine Neg (Negative); Glucose Urine UA Norm (Normal); Ketones Urine Negative (Negative); Leukocyte Esterase Urine Negative (Negative); Nitrate Urine Negative (Negative); Protein Urine Neg (Negative); Urine Appearance Clear (CLEAR); Urine Color Dark Yellow (Yellow); Urobilinogen Urine 1 mg/dL (Negative); pH Urine 5 (5-7)
[2019-09-01 03:52] LABS: Urine Osmolality 509 SEE NOTE
--- NOTE | 2019-09-01 03:53 | PC.NURSE ---
Pt coughed/vomited up green sputum and with red flakes in it. Pt complained of nausea, Dr Agudelo was called and gave order for 4mg Zofran q6h PRN.
[2019-09-01 03:55] LABS: Potassium, Radom Urine 49 mmol/L; Urine Protein Random 13 mg/dL
[2019-09-01] MEDS: ondansetron 2 mg/ML SDV 2 mL 4 MG IVP ×2 (04:11→10:35)
[2019-09-01 05:18] LABS: Urine Random Sodium 10 mmol/L
[2019-09-01 05:19] LABS: Urine Random Chloride 10 mmol/L
[2019-09-01 05:28] LABS: Urea Nitrogen,Urine Random 798 mg/dL
--- NOTE | 2019-09-01 05:39 | PC.NURSE ---
DR SANTIAGO NOTIFIED THAT PT IS REFUSING MORNING LABS.
--- NOTE | 2019-09-01 06:24 | PC.NURSE ---
SHIFT SUMMARY PT HAS BEEN ALERT AND ORIENTATED. PT HAS HAD ADEQUATE URINE OUTPUT. PT IV REMAINS ACCESS. PT STATES HE DOES NOT WANT MORE LAB DRAWS. PT HAS HAD SOME VOMIT THROUGH THE NIGHT. WAS MADE AWARE. PT WAS SINUS TACH THROUGH THE NIGHT, WAS READ IN HIS H/P. PT REMAINS WEAK, AND LOOKS PALE AND DUSKY. LUNGS REMAIN CLEAR.
--- NOTE | 2019-09-01 07:00 | US_ITS ---
WS: [id number] ULTRASOUND RENAL TECHNIQUE: Ultrasound examination of both kidneys. CLINICAL INFORMATION: APRIL ? HYDRO COMPARISON: None. FINDINGS: RIGHT: Right kidney is normal in size and appearance. Echogenicity: Normal. Hydronephrosis: None. Perinephric fluid: None. Right kidney measures: 8.7 cm x 4.2 cm x 4.4 cm. LEFT: Left kidney is normal in size and appearance. Echogenicity: Normal. Hydronephrosis: None. Perinephric fluid: None. Left kidney measures: 9.7 cm x 5.2 cm x 4.9 cm. Normal visualized aorta. Decompressed empty bladder US/US renal BI* [id number] IMPRESSION: 1. Normal renal ultrasound. 2. Decompressed empty bladder. 3. Small to moderate abdominal ascites.
--- NOTE | 2019-09-01 07:16 | PC.NURSE ---
Report received from nurse Huitron. Patient found to be resting in bed with eyes closed. Sinus tach noted to telemetry. All other vitals stable and WNL. Refusing blood draw at this time. Will obtain flu swab when patient agrees.
--- NOTE | 2019-09-01 07:17 | P.PN_ITS ---
Subjective Subjective: Interval history: weak, does not want further blood sticks. is making some urine. nausea. no sob, no edema Medications: Reviewed: Yes Vitals/I&O/Wt Last Vital Signs Temp 98.4 F 09/01/19 05:43 Pulse 118 H 09/01/19 06:00 Resp 12 09/01/19 06:00 BP 130/92 09/01/19 06:00 Pulse Ox 98 09/01/19 06:00 08/31/19 09/01/19 09/01/19 22:59 06:59 14:59 Intake Total 720 / 720 160.1 / 880.1 Output Total 125 / 125 400 / 525 Balance 595 / 595 -239.9 / 355.1 Weight last 48 hrs Weight 56.563 kg Weight 61.235 kg Physical Exam Narrative: EXAM NARRATIVE: comfortable in bed NARD, weak vs noted heent- nc/at, eomi neck supple lung dull bases heart tachycardic, reg abd- soft, distended, nt, +BS ext no edema neuro- a,a, o x 2 Urinary Catheter Management^: Watson Latex Free: Cath Placed During This Visit: no Data Micro: Micro: Microbiology 08/31/19 16:00 Gram Stain - Final Peritoneal Fluid 08/31/19 11:45 Blood Culture - Pr eliminary Blood SPECIMEN COLLEC KIKO A&P Assessment and plan (1) Acute kidney injury: Status: Acute Code(s): N17.9 - Acute kidney failure, unspecified Additional A&P Information 1/ APRIL- likely ATN vs HRS. low ur na c/w HRS 2. hyponatremia- from diuretics- slow correction. his serum na was 118 earlier this month 3. hyperkalemia from amki and potassium sparing diuretics and k 4. hypochloremia 5. leukocytosis- likely sbp vs uti- renal dose abx recs- albumin, midodrine, octreotide. repeat chem 7 at least 2 x/ day -monitor uop -if does not improve soon may need dialysis time spent has been over an hour of critical care to prevent seizures, arrythmias, and worsening renal failure Attestations Medical Necessity Statement*: hepat-renal syndrome, april, electrolyte abnor malities Time Spent in Patient Care: Greater than 35 minutes (>than 50% of time spent in counselling and/or direct pt care on unit) . 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
--- NOTE | 2019-09-01 07:25 | PC.NURSE ---
Lab at bedside attempting blood draw now.
[2019-09-01] MEDS: morphine IR 15 mg Tablet PO (07:32)
--- NOTE | 2019-09-01 07:35 | PC.NURSE ---
Flu swab obtained and sent to lab.
[2019-09-01 07:41] LABS: Basophils % 0.1 %; Hematocrit 38.8 % (42.0-52.0); Hemoglobin 13.2 g/dL (11.7-16.6); Lymphocytes # 0.2 10^3/uL (0.8-4.8); Lymphocytes % 1.4 %; Mean Corpuscular Hemoglobin 25.8 pg (28.0-34.0); Mean Corpuscular Volume 75.9 fL (80-94); Mean Platelet Volume 9.2 fL (7.4-10.4); Monocytes # 0.7 10^3/uL (0.2-0.9); Monocytes % 4.1 %; Neutrophils # 14.9 10^3/uL (1.8-7.7); Neutrophils % 93.8 %; Nucleated Red Blood Cells % 0 %; Platelet Count 224 10^3/cmm (130-400); Red Blood Count 5.11 10^6/uL (4.1-5.3); Red Cell Distribution Width 16.7 % (12.1-15.1); White Blood Count 15.9 10^3/uL (4.0-10.0)
[2019-09-01 07:46] LABS: INR 1.38 (0.8-1.2)
[2019-09-01 07:52] LABS: Lactic Acid level (Lactate) 1.8 mmol/L (0.5-2.2)
[2019-09-01 07:53] LABS: Alanine Aminotransferase 30 U/L (0-41); Alkaline Phosphatase 397 IU/L (40-130); Anion Gap 22.1 (5-19); Aspartate Amino Transferase 47 U/L (0-40); Blood Urea Nitrogen 77 mg/dL (6-20); Calcium 10.8 mg/Dl (8.6-10.0); Carbon Dioxide 21 mmol/L (22-29); Chloride 80 mmol/L (98-107); Globulin 3.2 g/dL (1.3-4.6); Glomerular Filtration Rate 35.1 mL/min (90-130); Glucose 94 mg/dL (74-109); Magnesium 2.5 mg/dL (1.7-2.3); Potassium 5.1 mmol/L (3.5-5.1); Total Bilirubin 2.3 mg/dL (0.15-1.2); Total Protein 7.2 g/dL (6.6-8.7)
[2019-09-01 08:13] LABS: Sodium 118 mmol/L (136-145)
[2019-09-01 08:16] LABS: Influenza A by IFA Negative (Negative); Influenza B by IFA Negative (Negative)
[2019-09-01 08:22] LABS: Glucose Point of Care 99 mg/dL (70-110)
--- NOTE | 2019-09-01 08:38 | PC.NURSE ---
Patient has midodrine ordered. BP currently 137/94. Waiting for Dr. Phillips to inquire about whether or not to give dose.
[2019-09-01] MEDS: midodrine 5 mg TABLET PO ×2 (08:45→17:14)
[2019-09-01] MEDS: heparin 5,000 unit/mL INJ 1 mL 5000 UNIT SUBCUT (08:45)
[2019-09-01] MEDS: nicotine 21 mg Patch 1 PATCH TRANSDERMA (08:45)
--- NOTE | 2019-09-01 08:46 | PC.NURSE ---
Dr. Goodrich at bedside to round on patient.
--- NOTE | 2019-09-01 09:01 | PC.NURSE ---
Instructions received from Dr. Alvarez to give midodrine. Patient refuses breakfast at this time.
[2019-09-01] MEDS: nystatin 100,000 unit/mL UDC 5 mL 400000 UNIT PO ×3 (10:00→18:28)
[2019-09-01] MEDS: morphine ER (12 HR) 30 mg tablet PO ×2 (10:02→20:25)
--- NOTE | 2019-09-01 11:02 | XR_ITS ---
WS: [id number] Portable AP upright chest, 09/01/2019 Clinical Data: post picc placement Comparison: Portable chest, 08/31/2019 Findings: No nodules, masses or effusions are seen. The heart is normal. The pulmonary vascularity is not increased. No pneumonia or pneumothorax is seen. The right PICC line is in good position in the abdomen the T6 vertebral body level. Monitor leads on the chest wall. XR/XR chest 1V portable [id number] Impression: Satisfactory placement of right PICC line.
--- NOTE | 2019-09-01 11:52 | PC.NURSE ---
PICC RIGHT arm ready for use. Primary nurse notified.
--- NOTE | 2019-09-01 13:30 | P.PN_ITS ---
Subjective Subjective: Interval history: He reports he is feeling about the same. Still having abdominal discomfort. Generally weak. Overnight there were issues with drawing blood due to difficult access. He is agreeable for placement of PICC line. Vitals/I&O/Wt Last Vital Signs Temp 98 F 09/01/19 08:00 Pulse 118 H 09/01/19 12:00 Resp 10 L 09/01/19 12:00 BP 123/86 09/01/19 12:00 Pulse Ox 96 09/01/19 12:00 08/31/19 09/01/19 09/01/19 22:59 06:59 14:59 Intake Total 720 / 720 160.1 / 880.1 271.405 / 271.405 Output Total 125 / 125 400 / 525 Balance 595 / 595 -239.9 / 355.1 271.405 / 271.405 Weight last 48 hrs Weight 56.563 kg Weight 61.235 kg Physical Exam Const: COMMON NORMALS: no apparent distress and oriented x3 ORIENTATION/CONSCIOUSNESS: not confused OTHER: Appears generally weak. HENMT: COMMON NORMALS: oropharynx normal Neck/C-Spine: COMMON NORMALS: no JVD Resp: COMMON NORMALS: normal respiratory effort and clear to auscultation bilaterally AUSCULTATION: clear to auscultation bilaterally Cardio: COMMON NORMALS: no JVD, regular rhythm, S1 normal heart sound, S2 normal heart sound and no murmurs RHYTHM: regular rhythm HEART SOUNDS: S1 normal and S2 normal GI: COMMON NORMALS: soft to palpation and non-tender INSPECTION: Yes abdominal distension PALPATION: Yes soft Extremity: COMMON NORMALS: no joint enlargement and no pedal edema Neuro: COMMON NORMALS: oriented x3 and moves all extremities Skin: COMMON NORMALS: no rashes or lesions noted GENERAL SKIN EXAM: no rashes or lesions noted Urinary Catheter Management^: Watson Latex Free: Cath Placed During This Visit: no Data Micro: Micro: Microbiology 08/31/19 11:18 Group A Streptococ cus Rapid Screen - Preliminary Throat 08/31/19 16:00 Gram Stain - Final Peritoneal Fluid 08/31/19 11:45 Blood Culture - Pr eliminary Blood SPECIMEN COLLE KIKO A&P Assessment and plan (1) Hyponatremia: With worsening of sodium after paracentesis down to 111. Was briefly restarted on 3% saline, however, appears this was discontinued with difficulty of blood draws overnight. Sodium redrawn this morning and up to 118. Several days ago on visit to ER sodium was 118. On presentation it was 113. Symptomatic with generalized weakness. Etiology for now is difficult to determine. He was on HCTZ previously at home. Recently with poor oral intake. At the same time large intra-abdominal ascites. Requested urine sodium, osmolality. Check TSH. Hold HCTZ. Limit paracentesis volume. Started on 3%. Recheck sodium frequently. Regular diet. Status: Acute Code(s): E87.1 - Hypo-osmolality and hyponatremia (2) SBP (spontaneous bacterial peritonitis): So far appears to have culture-negative neutrocytic ascites. No organisms seen on Gram stain. Continue Rocephin. Follow-up culture. Status: Acute Code(s): K65.2 - Spontaneous bacterial peritonitis (3) Hyperkalemia: Possibly secondary to spironolactone. Will hold at this time. Also with acute kidney injury. Low potassium diet. Status: Acute Code(s): E87.5 - Hyperkalemia (4) Acute kidney injury: Creatinine with mild improvement down to 2.0. Possible hepatorenal syndrome with advanced cirrhosis. Possible ATN secondary to large volume pa racentesis. Creatinine up to 2.4 which is higher than his baseline. Reports reduced oral intake in the last several days. Says his last food intake was sometime 4 days prior to admission. Reports he has not been drinking very much. Reports decreased urine output. Renal ultrasound without obstruction. Urine Osmol 509, urine sodium 10. Continue albumin. Octreotide. Midodrine. We are looking into transfer to a larger facility, with gastroenterology/possibly hepatology availability. He expressed preference for [facility]. Status: Acute Code(s): N17.9 - Acute kidney failure, unspecified (5) Leukocytosis: With mild improvement down to 16. Culture-negative neutrophilic ascites. Possibly viral pharyngitis versus possible candidal esophagitis. Rapid strep negative. Rapid flu negative. Status: Acute Code(s): D72.829 - Elevated white blood cell count, unspecified (6) Ascites: Moderate to large ascites. Previously had large volume paracentesis 7-8 L removed. Last paracentesis was on August 20 with reported 5 L drained. For now due to severe hyponatremia 1300 mL removed. Follow sodium. Follow paracentesis studies. Culture. Follow cytology. Continue Rocephin. Status: Acute Code(s): R18.8 - Other ascites (7) Cirrhosis of liver: Diagnosed 13 years ago. Reported secondary to alcoholism, IV drug use, hepatitis. Continue follow-up with Dr. Mullins. Continue attempts to quit smoking. Plan for referral for liver transplantation or becomes a candidate. Status: Acute Qualifiers: Ascites presence: with ascites Hepatic cirrhosis type: unspecified hepatic cirrhosis Qualified Code(s): K74.60 - Unspecified cirrhosis of liver; R18.8 - Other ascites Code(s): K74.60 - Unspecified cirrhosis of liver Additional A&P Information Generalized weakness: hyponatremia, CNNA, electrolyte normalities, poor oral intake for several days, with possible occult infection, ARPIL, advanced cirrhosis. TSH normal. Attestations Medical Necessity Statement*: Continue admission for assessment management of multiple conditions including hyponatremia, acute kidney CNNA, with advanced liver cirrhosis. Critical Care Time: Multisystem assessment given advanced underlying cirrhosis, with CNNA, severe hyponatremia, acute kidney injury. Critical care time: 30 - 74 mins Coding Level of Care Code Acute Biomedical Analytical Scientist for [facility] Fwd Diagnoses Hyponatremia E87.1 SBP (spontaneous bacterial peritonitis) K65.2 Hyperkalemia E87.5 Acute kidney injury N17.9 Leukocytosis D72.829 Ascites R18.8 Cirrhosis of liver K74.60; R18.8 Ascites presence: with ascites Hepatic cirrhosis type: unspecified hepatic cirrhosis
--- NOTE | 2019-09-01 15:35 | PM.TDS ---
Transfer Summary Providers Date of Admission: 08/31/19 16:18 Date of Discharge: 09/01/19 Attending Provider at Admission: Arsen Knott Attending Provider at Transfer: Arsen Knott Consults: Bert Rollins Primary Care Provider: Adam Mullins Anticipated Date of Transfer: Anticipated date of transfer: 09/01/19 Receiving Facility & Provider: Receiving Provider: [Dr Lowe] Receiving facility: [facility]] Diagnoses at Discharge Discharge Diagnosis (1) Hyponatremia: Status: Acute (2) SBP (spontaneous bacterial peritonitis): Status: Acute Problem details: CNNA (3) Hyperkalemia: Status: Acute (4) Acute kidney injury: Status: Acute (5) Leukocytosis: Status: Acute (6) Ascites: Status: Acute (7) Cirrhosis of liver: Status: Acute Qualifiers: Ascites presence: with ascites Hepatic cirrhosis type: unspecified hepatic cirrhosis Qualified Code(s): K74.60 - Unspecified cirrhosis of liver; R18.8 - Other ascites Reason for Visit Reason for Visit: Reason For Visit: Sore throat Hospital Course Hospital Course: 54-year-old gentleman with history of liver cirrhosis, diagnosed 13 years ago, with history of alcoholism in remission, history of drug use in remission, history of hepatitis C which he reports he is now in remission, reported history of chronic hepatitis B, chronic lower back pain, reported chronic tachycardia, current smoker of 1 pack/day was admitted on 08/31 after presenting to the emergency department with progressive generalized weakness, fatigue, poor appetite and oral intake, with reported no food intake for about 4 days, poor oral intake of fluids, decreased urination, with finding of severe hyponatremia, sodium 113, with sodium 118 several days prior during ER visit, hyperkalemia K 5.7, APRIL creatinine 2.4 with normal baseline creatinine, with sinus tachycardia 114, leukocytosis 20.7. He was found to have abdominal distention, on limited ultrasound performed in ER seem to have moderate to severe ascites. He was complaining of abdominal discomfort. Due to concern for possible SBP he was started on Rocephin, paracentesis was obtained limited volume, with 1300 mL removed, with 709 PMNs noted, with negative Gram stain, negative culture so far. Due to concern for hepatorenal syndrome he was started on albumin infusions, octreotide, midodrine. Acute kidney injury considered possible also due to ATN, perhaps with high-volume paracentesis. He has recurrent ascites, and has required multiple paracentesis over the last several months, sometimes as much as 8 L removed. Last one was on August 20 with 5 L removed. Urine studies were obtained due to hyponatremia, with osmolality of 509, sodium of 10. He reports he has not taken his medication since Saturday. At home he is on HCTZ, which may have contributed, and in addition to his low oral intake, as well as cirrhosis. His hyponatremia worsened somewhat after paracentesis down to 111. He was started on 3% saline, with gradual improvement. Due to difficulty with blood draws PICC line was ordered. Sodium improved up to 118 this morning. Spironolactone was held, likely contributing to his hyperkalemia. This improved out into 5. Continues on low potassium diet. His renal function improved slightly, creatinine down to 2. Due to concern for hepatorenal syndrome, multiple core bodies, with underlying advanced cirrhosis, with CNNA, persistent kidney injury transfer is sought to a higher level medical facility where he may also be seen by gastroenterology. His prognosis overall is guarded, and currently he is in a difficult condition. Should he recover, further consideration may be given to assessment for liver transplantation. Physical Exam Const: COMMON NORMALS: no apparent distress and oriented x3 ORIENTATION/CONSCIOUSNESS: not confused OTHER: Appears generally weak. HENMT: COMMON NORMALS: oropharynx normal Neck/C-Spine: COMMON NORMALS: no JVD Resp: COMMON NORMALS: normal respiratory effort and clear to auscultation bilaterally AUSCULTATION: clear to auscultation bilaterally Cardio: COMMON NORMALS: no JVD, regular rhythm, S1 normal heart sound, S2 normal heart sound and no murmurs RATE: tachycardic RHYTHM: regular rhythm HEART SOUNDS: S1 normal and S2 normal GI: COMMON NORMALS: soft to palpation and non-tender INSPECTION: Yes abdominal distension PALPATION: Yes soft Extremity: COMMON NORMALS: no joint enlargement and no pedal edema Neuro: COMMON NORMALS: oriented x3 and moves all extremities Skin: COMMON NORMALS: no wounds GENERAL SKIN EXAM: petechiae Urinary Catheter Management^: Watson Latex Free: Cath Placed During This Visit: no TS Data Data Completed and Pending: Completed Studies During Hospitalization Category Date Time Status XR chest 1V lalito ble [id number] Routine Exams 09/01/19 11:02 Completed XR chest 1V lalito ble [id number] Stat Exams 08/31/19 13:07 Com[place] abdomen [place] d [id number] Urgent Ultrasound 08/31/19 13:53 [place]acent[place] bd w [id number] Urgent Ultrasound 08/31/19 15:05 Completed US renal BI* [id number] Routine Ultrasound 09/01/19 07:00 Completed Pending at discharge Category Date Time Status Anaerobic Culture Routine Lab 08/31/19 16:00 Results BMP [Basic Metabo lic Panel] Routine Lab 09/01/19 17:30 Ordered Blood Culture Sta t Lab 08/31/19 11:45 Results Body Fluid Cultur e & GS Routine Lab 08/31/19 16:00 Results Complete Blood Co unt w/Auto AM LABS Lab 09/02/19 04:00 Ordered Complete Blood Co unt w/Auto AM LABS Lab 09/03/19 04:00 Ordered Comprehensive Met abolic Panel AM LA BS Lab 09/02/19 04:00 Ordered Comprehensive Met abolic Panel AM LA BS Lab 09/03/19 04:00 Ordered Magnesium AM LABS Lab 09/02/19 04:00 Ordered Magnesium AM LABS Lab 09/03/19 04:00 Ordered Streptococcus Cul ture Group A Stat Lab 08/31/19 11:18 Results Cytology [PTH] Ro utine Pth 08/31/19 15:08 Received Labs from last 24 hours 09/01/19 09/01/19 09/01/19 07:30 07:28 07:28 WBC 15.9 H RBC 5.11 Hgb 13.2 Hct 38.8 L MCV 75.9 L MCH 25.8 L MCHC 34.0 RDW 16.7 H Plt Count 224 MPV 9.2 Neut % (Auto) 93.8 Lymph % (Auto) 1.4 Mora % (Auto) 4.1 Eos % (Auto) 0.0 Baso % (Auto) 0.1 Neut # (Auto) 14.9 H Lymph # (Auto) 0.2 L Mora # (Auto) 0.7 Eos # (Auto) 0.0 Baso # (Auto) 0.0 Nucleated RBC % (a uto) 0 Nucleated RBCs # 0.0 Differential Comme nt PT 17.40 H INR 1.38 H Sodium Potassium Chloride Carbon Dioxide Anion Gap BUN Creatinine GFR Calculation Glucose POC Glucose Lactic Acid Lactic Acid (Sepsi s) Calcium Magnesium Total Bilirubin AST ALT Alkaline Phosphata se Ammonia Total Protein Albumin Globulin TSH Urine Color Urine Appearance Urine pH Ur Specific Gravit y Urine Protein Urine Glucose (UA) Urine Ketones Urine Occult Blood Urine Nitrate Urine Bilirubin Urine Urobilinogen Ur Leukocyte Meghan ase Urine Osmolality U Random Total Pro tein Ur Random Sodium Ur Random Potassiu m Ur Random Chloride Urine Creatinine Fluid Color Fluid Appearance Fluid Specific Gra v Fluid pH Fluid WBC Fluid RBC Fluid Tot Cell Cou nt Fld Polynuclear WB Cs # Fld Polynuclear WB Cs % Fl Mononucl WBCs # (Auto) Fl Mononuclear % A uto Fluid Glucose Fluid Total Protei n Fluid Albumin Fluid LDH Fluid Amylase Fluid Alk Phosphat ase Fluid Cholesterol Fluid Triglyceride s Fluid Uric Acid Influenza Type A A g Negative POC Influenza B Ag Negative 09/01/19 09/01/19 09/01/19 07:28 07:28 00:02 WBC RBC Hgb Hct MCV MCH MCHC RDW Plt Count MPV Neut % (Auto) Lymph % (Auto) Mora % (Auto) Eos % (Auto) Baso % (Auto) Neut # (Auto) Lymph # (Auto) Mora # (Auto) Eos # (Auto) Baso # (Auto) Nucleated RBC % (a uto) Nucleated RBCs # Differential Comme nt PT INR Sodium 118 L* Potassium 5.1 Chloride 80 L Carbon Dioxide 21 L Anion Gap 22.1 H BUN 77 H Creatinine 2.0 H GFR Calculation 35.1 L Glucose 94 POC Glucose 99 Lactic Acid Lactic Acid (Sepsi s) 1.8 Calcium 10.8 H Magnesium 2.5 H Total Bilirubin 2.3 H AST 47 H ALT 30 Alkaline Phosphata se 397 H Ammonia Total Protein 7.2 Albumin 4.0 Globulin 3.2 TSH Urine Color Urine Appearance Urine pH Ur Specific Gravit y Urine Protein Urine Glucose (UA) Urine Ketones Urine Occult Blood Urine Nitrate Urine Bilirubin Urine Urobilinogen Ur Leukocyte Meghan ase Urine Osmolality U Random Total Pro tein Ur Random Sodium Ur Random Potassiu m Ur Random Chloride Urine Creatinine Fluid Color Fluid Appearance Fluid Specific Gra v Fluid pH Fluid WBC Fluid RBC Fluid Tot Cell Cou nt Fld Polynuclear WB Cs # Fld Polynuclear WB Cs % Fl Mononucl WBCs # (Auto) Fl Mononuclear % A uto Fluid Glucose Fluid Total Protei n Fluid Albumin Fluid LDH Fluid Amylase Fluid Alk Phosphat ase Fluid Cholesterol Fluid Triglyceride s Fluid Uric Acid Influenza Type A A g POC Influenza B Ag 08/31/19 08/31/19 08/31/19 23:25 23:10 23:10 WBC RBC Hgb Hct MCV MCH MCHC RDW Plt Count MPV Neut % (Auto) Lymph % (Auto) Mora % (Auto) Eos % (Auto) Baso % (Auto) Neut # (Auto) Lymph # (Auto) Mora # (Auto) Eos # (Auto) Baso # (Auto) Nucleated RBC % (a uto) Nucleated RBCs # Differential Comme nt PT INR Sodium 117 L* Potassium 5.7 H Chloride 80 L Carbon Dioxide 21 L Anion Gap 21.7 H BUN 82 H* Creatinine 2.3 H GFR Calculation 29.9 L Glucose 115 H POC Glucose Lactic Acid Lactic Acid (Sepsi s) Calcium 10.2 H Magnesium Total Bilirubin AST ALT Alkaline Phosphata se Ammonia Total Protein Albumin Globulin TSH Urine Color Dark yellow Urine Appearance Clear Urine pH 5 Ur Specific Gravit y 1.020 Urine Protein Neg Urine Glucose (UA) Norm Urine Ketones Negative Urine Occult Blood Neg Urine Nitrate Negative Urine Bilirubin Neg Urine Urobilinogen 1 H Ur Leukocyte Meghan ase Negative Urine Osmolality 509 U Random Total Pro tein 13 Ur Random Sodium 10 Ur Random Potassiu m 49 Ur Random Chloride 10 Urine Creatinine Fluid Color Fluid Appearance Fluid Specific Gra v Fluid pH Fluid WBC Fluid RBC Fluid Tot Cell Cou nt Fld Polynuclear WB Cs # Fld Polynuclear WB Cs % Fl Mononucl WBCs # (Auto) Fl Mononuclear % A uto Fluid Glucose Fluid Total Protei n Fluid Albumin Fluid LDH Fluid Amylase Fluid Alk Phosphat ase Fluid Cholesterol Fluid Triglyceride s Fluid Uric Acid Influenza Type A A g POC Influenza B Ag 08/31/19 08/31/19 08/31/19 21:30 21:30 21:30 WBC RBC Hgb Hct MCV MCH MCHC RDW Plt Count MPV Neut % (Auto) Lymph % (Auto) Mora % (Auto) Eos % (Auto) Baso % (Auto) Neut # (Auto) Lymph # (Auto) Mora # (Auto) Eos # (Auto) Baso # (Auto) Nucleated RBC % (a uto) Nucleated RBCs # Differential Comme nt PT 17.80 H INR 1.42 H Sodium Cancelled 115 L* Potassium Cancelled Chloride Cancelled Carbon Dioxide Cancelled Anion Gap Cancelled BUN Cancelled Creatinine Cancelled GFR Calculation Cancelled Glucose Cancelled POC Glucose Lactic Acid Lactic Acid (Sepsi s) Calcium Cancelled Magnesium Total Bilirubin AST ALT Alkaline Phosphata se Ammonia Total Protein Albumin Globulin TSH 0.70 Urine Color Urine Appearance Urine pH Ur Specific Gravit y Urine Protein Urine Glucose (UA) Urine Ketones Urine Occult Blood Urine Nitrate Urine Bilirubin Urine Urobilinogen Ur Leukocyte Meghan ase Urine Osmolality U Random Total Pro tein Ur Random Sodium Ur Random Potassiu m Ur Random Chloride Urine Creatinine Fluid Color Fluid Appearance Fluid Specific Gra v Fluid pH Fluid WBC Fluid RBC Fluid Tot Cell Cou nt Fld Polynuclear WB Cs # Fld Polynuclear WB Cs % Fl Mononucl WBCs # (Auto) Fl Mononuclear % A uto Fluid Glucose Fluid Total Protei n Fluid Albumin Fluid LDH Fluid Amylase Fluid Alk Phosphat ase Fluid Cholesterol Fluid Triglyceride s Fluid Uric Acid Influenza Type A A g POC Influenza B Ag 08/31/19 08/31/19 08/31/19 18:00 17:27 16:36 WBC RBC Hgb Hct MCV MCH MCHC RDW Plt Count MPV Neut % (Auto) Lymph % (Auto) Mora % (Auto) Eos % (Auto) Baso % (Auto) Neut # (Auto) Lymph # (Auto) Mora # (Auto) Eos # (Auto) Baso # (Auto) Nucleated RBC % (a uto) Nucleated RBCs # Differential Comme nt PT INR Sodium 111 L* Potassium 6.0 H Chloride 79 L Carbon Dioxide 17 L Anion Gap 21.0 H BUN 81 H Creatinine 2.1 H GFR Calculation 33.2 L Glucose 133 H POC Glucose Lactic Acid 2.2 Lactic Acid (Sepsi s) Calcium 9.4 Magnesium Total Bilirubin AST ALT Alkaline Phosphata se Ammonia Total Protein Albumin Globulin TSH Urine Color Urine Appearance Urine pH Ur Specific Gravit y Urine Protein Urine Glucose (UA) Urine Ketones Urine Occult Blood Urine Nitrate Urine Bilirubin Urine Urobilinogen Ur Leukocyte Meghan ase Urine Osmolality U Random Total Pro tein Ur Random Sodium Ur Random Potassiu m Ur Random Chloride Urine Creatinine 117 Fluid Color Fluid Appearance Fluid Specific Gra v Fluid pH Fluid WBC Fluid RBC Fluid Tot Cell Cou nt Fld Polynuclear WB Cs # Fld Polynuclear WB Cs % Fl Mononucl WBCs # (Auto) Fl Mononuclear % A uto Fluid Glucose Fluid Total Protei n Fluid Albumin Fluid LDH Fluid Amylase Fluid Alk Phosphat ase Fluid Cholesterol Fluid Triglyceride s Fluid Uric Acid Influenza Type A A g POC Influenza B Ag 08/31/19 08/31/19 16:00 15:09 WBC RBC Hgb Hct MCV MCH MCHC RDW Plt Count MPV Neut % (Auto) Lymph % (Auto) Mora % (Auto) Eos % (Auto) Baso % (Auto) Neut # (Auto) Lymph # (Auto) Mora # (Auto) Eos # (Auto) Baso # (Auto) Nucleated RBC % (a uto) Nucleated RBCs # Differential Comme nt Yes PT INR Sodium Potassium Chloride Carbon Dioxide Anion Gap BUN Creatinine GFR Calculation Glucose POC Glucose Lactic Acid Lactic Acid (Sepsi s) Calcium Magnesium Total Bilirubin AST ALT Alkaline Phosphata se Ammonia 27 Total Protein Albumin Globulin TSH Urine Color Urine Appearance Urine pH Ur Specific Gravit y Urine Protein Urine Glucose (UA) Urine Ketones Urine Occult Blood Urine Nitrate Urine Bilirubin Urine Urobilinogen Ur Leukocyte Meghan ase Urine Osmolality U Random Total Pro tein Ur Random Sodium Ur Random Potassiu m Ur Random Chloride Urine Creatinine Fluid Color Pale yellow Fluid Appearance Clear Fluid Specific Gra v 1.005 Fluid pH 8.0 Fluid WBC 990 Fluid RBC 1 H Fluid Tot Cell Cou nt Not Reportable Fld Polynuclear WB Cs # 0.705 Fld Polynuclear WB Cs % 71.200 Fl Mononucl WBCs # (Auto) 0.285 Fl Mononuclear % A uto 28.800 Fluid Glucose 114.0 Fluid Total Protei n 1 Fluid Albumin 0.4 Fluid LDH 65 Fluid Amylase 4 Fluid Alk Phosphat ase 35 Fluid Cholesterol 10 Fluid Triglyceride s 16 Fluid Uric Acid 10 Influenza Type A A g POC Influenza B Ag Vitals: Last Vital Signs Temp 97.8 F 09/01/19 14:00 Pulse 117 H 09/01/19 14:00 Resp 13 09/01/19 14:00 BP 128/87 09/01/19 14:00 Pulse Ox 99 09/01/19 14:00 TS Medications Medications Home Medications albuterol sulfate [Ventolin HFA] 2 puff INHALATION Q6H PRN 08/20/19 [History Confirmed 08/31/19] betamethasone valerate 1 applic TOPICAL BID PRN 08/20/19 [History Confirmed 08/31/19] glipizide 5 mg PO DAILY 08/20/19 [History Confirmed 08/31/19] hydrochlorothiazide 25 mg PO DAILY 08/20/19 [History Confirmed 08/31/19] mirtazapine 15 - 30 mg PO BEDTIME 08/20/19 [History Confirmed 08/31/19] morphine 15 mg PO QID PRN 08/20/19 [History Confirmed 08/31/19] morphine 30 mg PO Q12H MDD 60 MG 08/20/19 [History Confirmed 08/31/19] omeprazole 20 mg PO DAILY PRN 08/20/19 [History Confirmed 08/31/19] ondansetron HCl [Zofran] 4 mg PO Q8H PRN 08/20/19 [History Confirmed 08/31/19] rifaximin [Xifaxan] 550 mg PO DAILY 08/20/19 [History Confirmed 08/31/19] spironolactone See Rx Instructions .ROUTE .COMPLEX 08/20/19 [History Confirmed 08/31/19] sumatriptan succinate 50 mg PO PRN MDD 100 MG 08/20/19 [History Confirmed 08/31/19] tizanidine 4 mg PO Q6H PRN 08/20/19 [History Confirmed 08/31/19] Active Medications Albuterol Sulfate (Ventolin) 2 puff INHALATION Q6H.RESPIRATORY PRN PRN Reason: Shortness Of Breath Lidocaine HCl 30 ml/Diphenhydramine HCl 75 mg/ Al Hydrox/Mg Hydrox/Simethicone 30 ml 0 ml MUCOUS MEM Q4H PRN PRN Reason: MOUTH PAIN Heparin Sodium (Beef Lung) (Heparin) 5,000 unit SUBCUT Q12H [facility] Last Admin: 09/01/19 08:45 Dose: 5,000 unit Documented by: Albumin Human (Albumin) 25 gm in 100 mls @ 60 mls/hr IV Q8H [facility] Last Infusion: 09/01/19 10:25 Dose: Infused Documented by: Octreotide Acetate 500 mcg/ (Sodium Chloride) 101 mls @ 10.1 mls/hr IV .Q10H [facility] Last Admin: 09/01/19 07:24 Dose: 50 mcg/hr, 10.1 mls/hr Documented by: Lactulose (Constulose) 10 gm PO TID [facility] Midodrine (Proamatine) 5 mg PO TID [facility] Last Admin: 09/01/19 08:45 Dose: 5 mg Documented by: Mirtazapine (Remeron) 15 mg PO BEDTIME [facility] Last Admin: 08/31/19 22:59 Dose: 15 mg Documented by: Morphine Sulfate (Ms Contin) 30 mg PO Q12H [facility] Last Admin: 09/01/19 10:02 Dose: 30 mg Documented by: Morphine Sulfate (Msir) 15 mg PO QID PRN PRN Reason: Breakthrough Pain Last Admin: 09/01/19 07:32 Dose: 15 mg Documented by: Nicotine (Nicoderm 21 Mg Patch) 1 patch TRANSDERMA DAILY [facility] Last Admin: 09/01/19 08:45 Dose: 1 patch Documented by: Nystatin (Nystatin) 400,000 unit PO QID [facility] Last Admin: 09/01/19 12:48 Dose: 400,000 unit Documented by: Ondansetron HCl (Zofran) 4 mg IVP Q6H PRN PRN Reason: NAUSEA AND VOMITING Last Admin: 09/01/19 10:35 Dose: 4 mg Documented by: Pantoprazole Sodium (Protonix) 40 mg PO DAILY PRN PRN Reason: Acid Reflux Tizanidine HCl (Zanaflex) 2 mg PO Q6H PRN PRN Reason: Spasms Discharge Plan Discharge Patient Disposition: Home, Self-Care Condition: Stable Prescriptions: No Action betamethasone valerate 0.1 % Ointment 1 applic TOPICAL BID PRN (Reason: Rash) RF: 0 tizanidine 4 mg Tablet 4 mg PO Q6H PRN (Reason: Spasms) RF: 0 ondansetron HCl [Zofran] 4 mg Tablet 4 mg PO Q8H PRN (Reason: Nausea) RF: 0 spironolactone 100 mg Tablet See Rx Instructions .ROUTE .COMPLEX RF: 0 sumatriptan succinate 50 mg Tablet 50 mg PO PRN MDD 100 MG RF: 0 mirtazapine 30 mg Tablet 15 - 30 mg PO BEDTIME RF: 0 omeprazole 20 mg Capsule,Delayed Release(Dr/Ec) 20 mg PO DAILY PRN (Reason: Acid Reflux) RF: 0 hydrochlorothiazide 25 mg Tablet 25 mg PO DAILY RF: 0 albuterol sulfate [Ventolin HFA] 90 mcg/actuation Hfa Aerosol Inhaler 2 puff INHALATION Q6H PRN (Reason: Shortness Of Breath) RF: 0 morphine 15 mg Tablet 15 mg PO QID PRN (Reason: Breakthrough Pain) RF: 0 glipizide 5 mg Tablet 5 mg PO DAILY RF: 0 morphine 30 mg Capsule,Extend.Release Pellets 30 mg PO Q12H MDD 60 MG RF: 0 Xifaxan 550 mg Tablet 550 mg PO DAILY RF: 0 Discharge Orders: Transfer Out of Facility (Order); Ordered 09/01/19 Ordered By: Arsen Knott Transfer Attestations Time Spent in Transfer Care*: greater than 30 min Quality Metrics Clinical Quality Measures: During this hospital stay, did patient experience: None Coding Level of Care Code Acute [employer] for g Fwd Diagnoses Hyponatremia E87.1 SBP (spontaneous bacterial peritonitis) K65.2 Hyperkalemia E87.5 Acute kidney injury N17.9 Leukocytosis D72.829 Ascites R18.8 Cirrhosis of liver K74.60; R18.8 Ascites presence: with ascites Hepatic cirrhosis type: unspecified hepatic cirrhosis
--- NOTE | 2019-09-01 17:00 | PC.NURSE ---
Patient will be transferred to [facility]. Bed 6116. Call placed for report to number [phone].
--- NOTE | 2019-09-01 17:08 | PC.NURSE ---
Report called to Nurse Mueller.
[2019-09-01] MEDS: lactulose oral liq 20 gm/30 mL UDC 10 GM PO (17:13)
[2019-09-01 18:46] LABS: Anion Gap 21.8 (5-19); Calcium 10.2 mg/Dl (8.6-10.0); Carbon Dioxide 20 mmol/L (22-29); Chloride 83 mmol/L (98-107); Glomerular Filtration Rate 37.3 mL/min (90-130); Glucose 149 mg/dL (74-109); Potassium 4.8 mmol/L (3.5-5.1); Sodium 120 mmol/L (136-145)
[2019-09-01 18:50] LABS: Blood Urea Nitrogen 85 mg/dL (6-20)
--- NOTE | 2019-09-01 20:34 | PC.NURSE ---
PT GOING TO [facility] VIA [facility]. VIA [facility].
== END 2019-09-01 20:24 | disposition short-term general hospital (02) | DRG 640 ==
LOC: ER 12:56 → ICU 18:02
PROVIDERS: Family Medicine; Internal Medicine Nephrology; Admitting Provider Internal Medicine; Emergency Provider Nurse Practitioner Family; Visit Provider Internal Medicine
DX: E87.1 Hypo-osmolality and hyponatremia (principal); K65.2 Spontaneous bacterial peritonitis; N17.9 Acute kidney failure, unspecified; R18.8 Other ascites; B37.0 Candidal stomatitis; E87.5 Hyperkalemia; K74.60 Unspecified cirrhosis of liver; F10.21 Alcohol dependence, in remission; Z86.19 Personal history of other infectious and parasitic diseases; G89.29 Other chronic pain; M54.9 Dorsalgia, unspecified; F17.210 Nicotine dependence, cigarettes, uncomplicated; E87.8 Other disorders of electrolyte and fluid balance, not elsewhere classified; E86.0 Dehydration; E83.52 Hypercalcemia; Z79.891 Long term (current) use of opiate analgesic; E11.9 Type 2 diabetes mellitus without complications; Z79.84 Long term (current) use of oral hypoglycemic drugs
CPT/HCPCS: 12345; 36415; 36416; 49083; 51702; 71045; 76705; 76770; 80048; 80053; 80500; 81003; 82042; 82140; 82150; 82436; 82465; 82570; 82945; 82962; 83605; 83615; 83735; 83935; 83986; 84075; 84133; 84156; 84157; 84295; 84300; 84315; 84443; 84478; 84540; 84560; 85025; 85610; 87040; 87070; 87075; 87081; 87205; 87804; 87880; 88112; 88305; 89050; 93005; 96372; 96375; 99284; C1751; J0610; J0696; J1644; J1815; J2354; J2405; J2543; J3010; J7040; J7131; P9047; Q3014

== ENCOUNTER 2019-10-05 16:53 | Emergency (ER) | payer OTHER, SELFPAY ==
[2019-10-05 16:56] VITALS: BP 106/87; PULSE 107; RESP 22; O2SAT 100; BMI 23.3
--- NOTE | 2019-10-05 17:07 | ED_ITS ---
Entered by Stephanie Griffin, acting as scribe for Cornelius Riggins MD, [facility] [place] HPI - Abdominal Pain General: Chief Complaint: Abdominal Pain Stated Complaint: ABD SWELLING Time Seen by Provider: 10/05/19 17:07 Source: patient, EMS and RN notes reviewed Mode of arrival: EMS Limitations: no limitations History of Present Illness: HPI narrative: 54 yo male presents to ED with abdominal pain. He said he needs to get his stomach drained and get the fluid off. He said that's all he needs. He said he is due to go to [place] and have a drain placed so Hospice can do this at his home. The patient is having difficulty breathing and his stomach is distended. He said it has been unbearable for 4 days. He has been waiting on Hospice to do something and he gave up until they called him today and said they were coming. His last bowel movement was about 3 days ago . MD elicited complaint: abdominal pain Pertinent past history: other (peritonitis, retroperitoneal infections, ascites, cirrhosis of liver) Onset (ago): day(s) (4) Pain Consistency: constant Location: Diffuse Severity: severe Quality: aching Radiation: none Migration to: no migration Relieving factors: nothing Context: other (peritonitis, retroperitoneal infections, ascites, cirrhosis of liver) Associated Symptoms: Reports bloating, change in bowel habits, constipation and GI cramping; Denies chills, dysuria and fever(s) Review of Systems General: Reports: 10 or more systems reviewed and unremarkable except in HPI and below Const: Denies: fever, chills or body aches Eyes: Reports: blind spots; Denies: change in vision or blurry vision ENMT: Denies: throat pain, enlarged tonsils, painful swallowing, hoarseness, mouth pain or swelling of lips/tongue Card: Reports: chest pain; Denies: palpitations, irregular heart rhythm, edema or swelling of feet/ankles Resp: Denies: productive cough or non-productive cough GI: Reports: constipation, bloating, cramping and change in bowel habits : Denies: flank pain, painful urination, urinary frequency, urinary urgency or urinary hesitancy Musc: Denies: neck pain, back pain or extremity swelling Skin/Breast: Denies: rash, itching or redness Neuro: Denies: headache, numbness in extremities or weakness in extremities Endo: Denies: excessive urination, excessive thirst or tired all the time PFSH ED PFSH: Medical History (Updated 10/05/19 @ 19:16 by Cornelius Riggins MD, [facility] [place]) Acute kidney injury Chronic low back pain Current smoker DM type 2 (diabetes mellitus, type 2) Hepatitis B Hepatitis C History of alcoholism History of drug abuse Surgical History Hx of cholecystectomy Social History Smoking and tobacco status: current every day smoker Alcohol intake: former Marital status: Current occupational status: unemployed Physical Exam Const: COMMON NORMALS: average body habitus, oriented x3, no limitations, healthy appearing, alert and well nourished HENMT: COMMON NORMALS: normocephalic, head/scalp atraumatic and moist oral mucous membranes HEAD & SCALP: normocephalic and atraumatic Eye: COMMON NORMALS: PERRL, EOMs intact bilaterally, conjunctivae normal and no scleral icterus CONJUNCTIVA: Yes conjunctivae normal PUPIL: Yes PERRL Neck/C-Spine: COMMON NORMALS: full ROM, supple, no meningeal signs, no JVD and no carotid bruits Chest: COMMONS NORMALS: inspection of chest normal and palpation of chest normal Resp: COMMON NORMALS: normal respiratory effort, no retractions, no use of accessory muscles, clear to auscultation bilaterally and percussion normal AUSCULTATION: clear to auscultation bilaterally PERCUSSION: percussion normal Cardio: COMMON NORMALS: no JVD, regular rate, regular rhythm, S1 normal heart sound, S2 normal heart sound, no gallops, no clicks, no murmurs, no rub and peripheral pulses 2+ throughout RATE: regular rate RHYTHM: regular rhythm HEART SOUNDS: S1 normal and S2 normal PERIPHERAL PULSES: pulses 2+ throughout GI: COMMON NORMALS: no masses and no bruits : COMMON NORMALS: Yes no CVA tenderness BLADDER/KIDNEY EXAM: Yes no CVA tenderness Back/Pelvis: COMMON NORMALS: no CVA tenderness Extremity: COMMON NORMALS: normal to inspection, full ROM, normal capillary refill, no calf tenderness and no pedal edema Neuro: COMMON NORMALS: oriented x3 SENSORIUM/ORIENTATION: Yes alert M ENINGEAL SIGNS: Yes no meningeal signs Skin: COMMON NORMALS: no rashes or lesions noted, no wounds, skin turgor normal, no jaundice, no petechiae and no mottling GENERAL SKIN EXAM: no rashes or lesions noted and turgor normal Course Reevaluation(s): Reevaluation #1: Patient feels much improved following the paracentesis. He is ready to be discharged home Time: 19:00 Consultations: Consultation #1: Dr. Ryan Brgag. Interventional radiologist. She kindly accepted to perform the paracentesis on this patient. Vital Signs: Vital signs: Vital Signs Pulse Rate 107 H 10/05/19 16:56 Respiratory Rate 22 H 10/05/19 16:56 Blood Pressure 106/87 10/05/19 16:56 Pulse Oximetry 100 10/05/19 16:56 MDM - Abdominal Pain MDM Narrative: Medical decision making narrative: 54-year-old male with alcoholic cirrhosis and is on hospice care. He has frequent abdominal paracentesis due to ascites. It appears he has been worked up for a drain. The patient presents with severe abdominal pain secondary to massive ascites. The patient did not want any investigations, he did not want an IV, all he wanted was an abdominal paracentesis to relieve his pain. Interventional radiology was able to perform the paracentesis and drained 6 L of ascitic fluid. He is discharged home with no new orders. Medical Records: Attestation: I reviewed the patient's medical records. Discharge Plan Discharge Patient Disposition: Home, Self-Care Clinical Impression: Hospice care patient Ascites Qualifiers: Ascites type: due to alcoholic cirrhosis Qualified Code(s): K70.31 - Alcoholic cirrhosis of liver with ascites Abdominal pain Qualifiers: Abdominal location: generalized Qualified Code(s): R10.84 - Generalized abdominal pain Condition: Stable Prescriptions: Continued betamethasone valerate 0.1 % Ointment 1 applic TOPICAL BID PRN (Reason: Rash) RF: 0 tizanidine 4 mg Tablet 4 mg PO Q6H PRN (Reason: Spasms) RF: 0 ondansetron HCl [Zofran] 4 mg Tablet 4 mg PO Q8H PRN (Reason: Nausea) RF: 0 spironolactone 100 mg Tablet See Rx Instructions .ROUTE .COMPLEX RF: 0 sumatriptan succinate 50 mg Tablet 50 mg PO PRN MDD 100 MG RF: 0 mirtazapine 30 mg Tablet 15 - 30 mg PO BEDTIME RF: 0 omeprazole 20 mg Capsule,Delayed Release(Dr/Ec) 20 mg PO DAILY PRN (Reason: Acid Reflux) RF: 0 hydrochlorothiazide 25 mg Tablet 25 mg PO DAILY RF: 0 albuterol sulfate [Ventolin HFA] 90 mcg/actuation Hfa Aerosol Inhaler 2 puff INHALATION Q6H PRN (Reason: Shortness Of Breath) RF: 0 morphine 15 mg Tablet 15 mg PO QID PRN (Reason: Breakthrough Pain) RF: 0 glipizide 5 mg Tablet 5 mg PO DAILY RF: 0 morphine 30 mg Capsule,Extend.Release Pellets 30 mg PO Q12H MDD 60 MG RF: 0 Xifaxan 550 mg Tablet 550 mg PO DAILY RF: 0 Discharge Orders: Discharge Order (Routine); Ordered 10/05/19 Ordered By: Cornelius Riggins Patient Instructions: Cholecystitis (ED), Abdominal Pain (ED) Activity Restrictions/Additional Instructions: Return for any new or worsening symptoms. Follow-up with your primary care provider within 3 days. Coding Level of Care Code ED Paper Final Inspector for Chg Fwd Exam Comprehensive The documentation recorded by the Gaby dang Valerie R, accurately reflects the service I personally performed and the decisions made by Vaishnavi torres Adegoke I, MD, [facility] [place] Oct 05, 2019 16:53
--- NOTE | 2019-10-05 17:39 | US_ITS ---
WS: [id number] ULTRASOUND-GUIDED THERAPEUTIC PARACENTESIS Procedure, risks, and complications have been explained to the patient. Consent is obtained. Utilizing aseptic technique and 1% buffered lidocaine, a small dermatome was made through which a 5 F rench Yueh catheter was inserted. Approximately 6000 ml of clear peritoneal fluid was obtained witho ut difficulty. No complications encountered. US/US paracentesis abd w [id number] IMPRESSION: Uncomplicated paracentesis yielding 6000 ml of peritoneal fluid.
[2019-10-05 19:25] VITALS: BP 106/87; PULSE 78; RESP 18; O2SAT 100
== END 2019-10-05 19:26 | disposition home or self-care (01) ==
PROVIDERS: Emergency Provider Family Medicine
DX: R18.8 Other ascites (principal); R10.9 Unspecified abdominal pain; K74.60 Unspecified cirrhosis of liver; E11.9 Type 2 diabetes mellitus without complications; F17.200 Nicotine dependence, unspecified, uncomplicated
CPT/HCPCS: 49083; 99281; 99283